=== PATIENT | male | born 1955 | race American Indian/Alaskan Native ===

== ENCOUNTER 2017-01-01 21:41 | Inpatient (IN) | payer MEDICAID ==
[2017-01-01] MEDS ORDERED: Aspirin 325 mg EC Tablets PO STA (23:45)
[2017-01-01] MEDS ORDERED: Nitroglycerin 2% Ointment Foilpak UD TOP STA (23:45)
--- NOTE | 2017-01-02 00:37 | C.PDOC ---
History Of Present Illness <Roe Falcon - Last Filed: 01/02/17 00:58> <Michaela Dan - Last Filed: 01/02/17 02:34> 61 year old male with a Hx of HTN and CHF that presents to the ER with a complaint of chest discomfort and SOB. 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 (Roe Falcon) History Per: Patient History/Exam Limitations: no limitations Onset/Duration Of Symptoms: Hrs Current Symptoms Are (Timing): Still Present Associated Symptoms: Dyspnea. denies: Nausea, Diaphoresis, Syncope Modifying Factors: None Exacerbating Factors: None Alleviating Factors: None Recent travel outside of the [place]: No <Roe Falcon - Last Filed: 01/02/17 00:58> <Michaela Dan - Last Filed: 01/02/17 02:34> Time Seen by Provider: 01/01/17 23:39 Chief Complaint (Nursing): Chest Pain Past Medical History Reviewed: Historical Data, Nursing Documentation, Vital Signs - Medical History PMH: CHF, HTN Surgical History: No Surg Hx Family History: States: Unknown Family Hx - Social History Hx Alcohol Use: Yes Hx Substance Use: No - Immunization History Hx Tetanus Toxoid Vaccination: No Hx Influenza Vaccination: No Hx Pneumococcal Vaccination: No <Roe Falcon - Last Filed: 01/02/17 00:58> Vital Signs: Last Vital Signs Temp 97.3 F L 01/01/17 21:52 Pulse 84 01/01/17 22:30 Resp 16 01/01/17 21:52 BP 112/75 01/02/17 00:56 Pulse Ox 98 01/02/17 01:04 Review Of Systems Constitutional: Negative for: Fever, Chills Cardiovascular: Positive for: Chest Pain (Discomfort) Respiratory: Positive for: Shortness of Breath Gastrointestinal: Negative for: Nausea, Vomiting <Roe Falcon - Last Filed: 01/02/17 00:58> Physical Exam - Physical Exam Appears: Non-toxic, No Acute Distress Skin: Normal Color, Warm, Dry Head: Atraumatic, Normacephalic Oral Mucosa: Moist Chest: Symmetrical Cardiovascular: Rhythm Regular (Positive S1 S2 S3), No JVD Respiratory: Normal Breath Sounds, No Rales, No Rhonchi, No Wheezing Gastrointestinal/Abdominal: Soft, No Tenderness Neurological/Psych: Oriented x3, Normal Speech, Normal Cognition <Roe Falcon - Last Filed: 01/02/17 00:58> ED Course And Treatment - Laboratory Results Result Diagrams: 01/02/17 00:15 O2 Sat by Pulse Oximetry: 98 (Room air) Pulse Ox Interpretation: Normal Progress Note: EKG, blood work, and CXR ordered. Aspirin administered. Nitro- bid applied. <Roe Falcon - Last Filed: 01/02/17 00:58> - Laboratory Results Result Diagrams: 01/02/17 00:15 01/02/17 01:09 ECG: Interpreted By Me, Viewed By Me ECG Rhythm: Sinus Rhythm (78), Nonspecific Changes (lad, lvvh with repol. lar ischemic changes) Pulse Ox Interpretation: Normal - Radiology CXR: Interpreted by Me, Viewed By Me CXR Interpretation: Yes: Other (top nl heart). No: Infiltrates, Fracture Progress Note: 2:03 AM ekg nsr 70 bpm, lad, lvh with repol st down lat leads. 2 :[address] CALDERON - CARDIOLOGY , ischemic changes,, and run it by domestic technician. 2:[address] marshall. Pt does not meet criteria for code heart <Michaela Dan - Last Filed: 01/02/17 02:34> Critical Care Time - Critical Care Note Total Time (in mins): 30 Documented critical care: time excludes all time spent performing seperately billable procedures. <Michaela Dan - Last Filed: 01/02/17 02:34> Disposition <Roe Falcon - Last Filed: 01/02/17 00:58> Discussed With DrJn: Booker Ibrahim Comment: accepted the pt on his service and took over the care at 2;33 AM Doctor Will See Patient In The: ED Counseled Patient/Family Regarding: Studies Performed, Diagnosis - Disposition Disposition Time: 01:00 <Michaela Dan - Last Filed: 01/02/17 02:34> - Disposition Disposition: HOSPITALIZED Condition: FAIR Forms: [facility] (Irish) - Clinical Impression Clinical Impression: Chest pain, NSTEMI (non-ST elevated myocardial infarction) - Scribe Statement The provider has reviewed the documentation as recorded by the Scribe <Roe Falcon - Last Filed: 01/02/17 00:58> <Michaela Dan - Last Filed: 01/02/17 02:34> - Scribe Statement Kevon Marroquin All medical record entries made by the Scribe were at my direction and personally dictated by me. I have reviewed the chart and agree that the record accurately reflects my personal performance of the history, physical exam, medical decision making, and the department course for this patient. I have also personally directed, reviewed, and agree with the discharge instructions and disposition. (Roe Falcon) Physician Patient Turnover Patient Signed Over To: Michaela Dan Handoff Comments: f/u labs/cxr plant to admit to Hospitalists for chest pain . <Roe Falcon - Last Filed: 01/02/17 00:58> Decision To Admit <Roe Falcon - Last Filed: 01/02/17 00:58> - Pt Status Changed To: Hospital Disposition Of: Inpatient - Admit Certification Admit to Inpatient:: After my assessment, the patient will require hospitalization for at least two midnights. This is because of the severity of symptoms shown, intensity of services needed, and/or the medical risk in this patient being treated as an outpatient. - InPatient: Physician Admission Certification: I certify that this patient requires 2 or more midnights of care for the following reason:: After my assessment, the patient will require hospitalization for at least two midnights. This is because of the severity of symptoms shown, intensity of services needed, and/or the medical risk in this patient being treated as an outpatient. - . Bed Request Type: Telemetry Admitting Physician: Booker Ibrahim <Michaela Dan - Last Filed: 01/02/17 02:34> - . Patient Diagnosis: Chest pain, NSTEMI (non-ST elevated myocardial infarction)
[2017-01-02 00:39] LABS: BASO % 0.7 % (0.0-2.0); EOS % 1.1 % (0.0-4.0); HEMATOCRIT 48.2 % (35.0-51.0); LYMPH % 32.1 % (20.0-40.0); MEAN CELL VOLUME 89.3 fL (80.0-94.0); MEAN CORPUSCULAR HEMOGLOBIN 29.2 pg (27.0-31.0); MEAN CORPUSCULAR HGB CONC 32.7 g/dL (33.0-37.0); MEAN PLATELET VOLUME 9.7 fL (7.2-11.7); MONO # 0.6 K/uL (0.0-0.8); MONO % 20.4 % (0.0-10.0); NRBC % 0.4 % (0.0-2.0); PLATELET COUNT 90 K/uL (130-400); RED CELL DISTRIBUTION WIDTH 16.6 % (11.5-14.5); WHITE BLOOD COUNT 3.1 K/uL (4.8-10.8)
[2017-01-02 00:49] LABS: INR 0.9
[2017-01-02] MEDS ORDERED: Aspirin 325 mg EC Tablets PO ONE (00:53)
[2017-01-02] MEDS ORDERED: Nitroglycerin 2% Ointment Foilpak UD TOP ONE (00:53)
[2017-01-02 01:28] LABS: ALB/GLOB RATIO 1.1 (1.0-2.1); ALKALINE PHOSPHATASE 101 U/L (38-126); ALT/SGPT 276 U/L (21-72); AST/SGOT 292 U/L (17-59); BILIRUBIN,TOTAL 0.9 mg/dL (0.2-1.3); BLOOD UREA NITROGEN 44 mg/dL (9-20); CALCIUM 8.6 mg/dl (8.6-10.4); CARBON DIOXIDE 28 mmol/L (22-30); CHLORIDE 98 mmol/L (98-107); GFR AFRICAN-AMERICAN > 60; GLUCOSE,RANDOM 88 mg/dL (75-110); POTASSIUM 4.3 mmol/L (3.6-5.2); SODIUM 134 mmol/L (132-148); TOTAL PROTEIN 6.7 g/dL (6.3-8.3)
[2017-01-02 02:35] LABS: EOSINOPHIL 1 % (0-4); NEUTROPHIL 53 % (50-75); REACTIVE LYMPHOCYTES 12 % (0-0); TOTAL CELLS COUNTED 100
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
[2017-01-02] MEDS ORDERED: Folic Acid 1 MG, Thiamine 100 MG, Multivitamin (MVI) 10 ML in Dextrose 5% In Water 1,00... IV SCH (05:00)
[2017-01-02 06:24] LABS: BASO % 1.1 % (0.0-2.0); EOS % 1.7 % (0.0-4.0); HEMATOCRIT 45.1 % (35.0-51.0); LYMPH # 0.8 K/uL (1.0-4.3); LYMPH % 31.8 % (20.0-40.0); MEAN CELL VOLUME 88.5 fL (80.0-94.0); MEAN CORPUSCULAR HEMOGLOBIN 28.8 pg (27.0-31.0); MEAN CORPUSCULAR HGB CONC 32.6 g/dL (33.0-37.0); MEAN PLATELET VOLUME 9.8 fL (7.2-11.7); MONO # 0.5 K/uL (0.0-0.8); MONO % 19.9 % (0.0-10.0); NRBC % 0.3 % (0.0-2.0); RED CELL DISTRIBUTION WIDTH 16.6 % (11.5-14.5); WHITE BLOOD COUNT 2.5 K/uL (4.8-10.8)
[2017-01-02 06:37] LABS: ALKALINE PHOSPHATASE 104 U/L (38-126); ALT/SGPT 273 U/L (21-72); AST/SGOT 285 U/L (17-59); BILIRUBIN,TOTAL 0.5 mg/dL (0.2-1.3); BLOOD UREA NITROGEN 42 mg/dL (9-20); CALCIUM 8.3 mg/dl (8.6-10.4); CARBON DIOXIDE 29 mmol/L (22-30); CHLORIDE 100 mmol/L (98-107); GFR AFRICAN-AMERICAN > 60; GLUCOSE,RANDOM 80 mg/dL (75-110); MAGNESIUM 1.8 mg/dL (1.6-2.3); PHOSPHOROUS 3.7 mg/dL (2.5-4.5); SODIUM 134 mmol/L (132-148); TOTAL PROTEIN 7.2 g/dL (6.3-8.3)
[2017-01-02 06:39] LABS: ALB/GLOB RATIO 0.8 (1.0-2.1)
--- NOTE | 2017-01-02 08:36 | RAD ---
PROCEDURE: CHEST RADIOGRAPH, 1 VIEW HISTORY: Shortness of breath COMPARISON: None available. FINDINGS: LUNGS: No focal infiltrate or effusion. Mild venous congestion. Upper lobe granulomatous changes. PLEURA: No pneumothorax or pleural fluid seen. CARDIOVASCULAR: Tortuous ectatic aorta. Mild calcification at the aortic knob. OSSEOUS STRUCTURES: Degenerative changes in the spine and shoulders. VISUALIZED UPPER ABDOMEN: Normal. OTHER FINDINGS: None. IMPRESSION: No focal infiltrate or effusion. Mild venous congestion. Upper lobe granulomatous changes.
[2017-01-02] MEDS: Enoxaparin 60 mg Syringe SC SCH ×2 (11:50→21:38)
[2017-01-02 15:38] LABS: CHOLESTEROL 120 mg/dL (0-199)
--- NOTE | 2017-01-02 17:24 | CARD ---
APPROVED REPORT EXAM: Two-dimensional and M-mode echocardiogram with Doppler and color Doppler. Other Information Quality : GoodRhythm : INDICATION Chest Pain RISK FACTORS Hypertension Hyperlipidemia 2D DIMENSIONS IVSd1.3 (0.7-1.1cm)LVDd4.7 (3.9-5.9cm) PWd1.3 (0.7-1.1cm)LVDs3.8 (2.5-4.0cm) FS (%) 17.9 %LVEF (%)50.0 (>50%) M-Mode DIMENSIONS Left Atrium (MM)4.20 (2.5-4.0cm)Aortic Root3.81 (2.2-3.7cm) Aortic Cusp Exc.2.33 (1.5-2.0cm) Mitral Valve MV E Elaclbns29.3cm/sMV A Eccpgfsk80.6cm/sE/A ratio0.7 TDI E/Lateral E'0.0E/Medial E'0.0 Tricuspid Valve TR Peak Khktzurs892lc/sTR Peak Gr.64sgOyDBKL03kdPu LEFT VENTRICLE There is mild to moderate concentric left ventricular hypertrophy. The systolic function is mildly to moderately impaired. Ejection fraction - 40 -45%. There is normal LV segmental wall motion. Transmitral Doppler flow pattern is Grade I-abnormal relaxation pattern. RIGHT VENTRICLE The right ventricle is normal size. The right ventricular systolic function is normal. ATRIA The left atrium is mildly to moderately dilated. The right atrium is mildly dilated. AORTIC VALVE The aortic valve is normal in structure. There is trace aortic regurgitation. MITRAL VALVE The mitral valve is normal in structure. There is no mitral valve regurgitation noted. TRICUSPID VALVE The tricuspid valve is normal in structure. There is mild tricuspid regurgitation. Right ventricular systolic pressure is estimated at 30 mmHg. PULMONIC VALVE The pulmonary valve is normal in structure. GREAT VESSELS The aortic root is mildly enlarged. The IVC is normal in size and collapses >50% with inspiration. PERICARDIAL EFFUSION There is no pericardial effusion. <Conclusion> There is mild to moderate concentric left ventricular hypertrophy. The systolic function is mildly to moderately impaired. Ejection fraction - 40 - 45%. Transmitral Doppler flow pattern is Grade I-abnormal relaxation pattern. The right ventricular systolic function is normal. The left atrium is mildly to moderately dilated. There is trace aortic regurgitation. There is mild tricuspid regurgitation. Right ventricular systolic pressure is estimated at 30 mmHg. The aortic root is mildly enlarged. There is no pericardial effusion.
[2017-01-02] MEDS ORDERED: Metoprolol Succinate 12.5 mg XL PO ONE (17:50)
--- NOTE | 2017-01-02 19:24 | CARD ---
APPROVED REPORT EKG Measurement Heart [id number] <Conclusion> Normal sinus rhythm Left atrial enlargement Left axis deviation Left ventricular hypertrophy with repolarization abnormality Abnormal ECG
--- NOTE | 2017-01-02 19:58 | CP.PCM.PN ---
<WilcoxKalyani bradshawmariam Gamez - Last Filed: 01/02/17 20:08> Subjective - Date & Time of Evaluation Date of Evaluation: 01/02/17 Time of Evaluation: 10:00 - Subjective Subjective: Medicine note (PGY-1)----> Dr. Tello's service Patient was seen and examined at bedside. Patient reports that he is doing well and has no complaints. Patient denies chest pain, sob, palpitations, dizziness, fever, chills, nausea, vomiting, left arm numbness or tingling. Objective - Vital Signs/Intake and Output Vital Signs (last 24 hours): Temp Pulse Resp BP Pulse Ox 97.8 F 74 12 124/90 100 01/02/17 14:00 01/02/17 18:00 01/02/17 14:00 01/02/17 14:00 01/02/17 14:00 Intake and Output: 01/02/17 01/03/17 18:59 06:59 Intake Total 150 Output Total 700 Balance -550 - Medications Medications: Current Medications Aspirin (Aspirin Chewable) 81 mg PO DAILY [facility] Last Admin: 01/02/17 13:12 Dose: 81 mg Clopidogrel Bisulfate (Plavix) 75 mg PO DAILY [facility] Last Admin: 01/02/17 13:12 Dose: 75 mg Enoxaparin Sodium (Lovenox) 50 mg SC Q12 [facility] Last Admin: 01/02/17 11:50 Dose: 50 mg Famotidine (Pepcid) 20 mg PO DAILY [facility] Last Admin: 01/02/17 13:12 Dose: 20 mg Folic Acid (Folic Acid) 1 mg PO DAILY [facility] Last Admin: 01/02/17 13:12 Dose: 1 mg Folic Acid 1 mg/ Thiamine HCl 100 mg/ Multivitamins/Vitamin C 10 ml/ Dextrose 1 ,011.2 mls @ 50 mls/hr IV [id number] [facility] Stop: 01/03/17 01:13 Last Admin: 01/02/17 06:16 Dose: 50 mls/hr Lorazepam (Ativan) 1 mg IVP Q4H PRN PRN Reason: Symptoms of alcohol withdrawl Metoprolol Succinate (Toprol Xl) 12.5 mg PO DAILY [facility] Rosuvastatin Calcium (Crestor) 20 mg PO HS [facility] Thiamine HCl (Vitamin B1 Tab) 100 mg PO DAILY [facility] Last Admin: 01/02/17 13:12 Dose: 100 mg - Labs Labs: 01/02/17 06:18 01/02/17 06:18 PT 10.3 SECONDS (9.7-12.2) 01/02/17 00:15 INR 0.9 01/02/17 00:15 APTT 25 SECONDS (21-34) 01/02/17 00:15 - Constitutional Appears: Well, No Acute Distress - Head Exam Head Exam: ATRAUMATIC, NORMAL INSPECTION - Eye Exam Eye Exam: EOMI - Respiratory Exam Respiratory Exam: Clear to Ausculation Bilateral, NORMAL BREATHING PATTERN - Cardiovascular Exam Cardiovascular Exam: REGULAR RHYTHM, +S1, +S2 - GI/Abdominal Exam GI & Abdominal Exam: Soft, Normal Bowel Sounds - Extremities Exam Extremities Exam: Full ROM. absent: Calf Tenderness, Pedal Edema Additional comments: varicose veins Unkept Dry - Neurological Exam Neurological Exam: Alert, Awake, Oriented x3 - Psychiatric Exam Psychiatric exam: Normal Affect - Skin Skin Exam: Normal Color Assessment and Plan (1) NSTEMI (non-ST elevated myocardial infarction) Assessment & Plan: Commercial Litigation Paralegal, Dr. Hand consulted, help appreciated * Management as per recommendation Labs: Lipid panel: TGL:120, LDL<30, HDL:87 HgbA1C:5.6 Troponin I: 0.1630, 0.1610, 0.1270 Medication: * ASA 81 mg po daily * Lovenox 50 mg sc q12h * Crestor 20mg po daily * Metoprolol succinate 12.5mg po daily * Plavix 75 mg po daily Status: Acute (2) Alcohol use disorder Assessment & Plan: Ativan 1 mg q4h PRN Thiamine 100 mg po daily Folic acid 1 mg po daily Banana bag at 50 cc/hr Seizure precautions, aspiration precautions Status: Acute (3) History of hypertension Assessment & Plan: Stable Continue to Monitor Status: Acute (4) History of hyperlipidemia Assessment & Plan: Crestor 20mg PO HS Status: Acute (5) Prophylactic measure Assessment & Plan: GI: pepcid 20mg po daily DVT: SCDs, lovenox 50mg sc q12h\ Heart healthy diet Status: Acute <Gene Tello - Last Filed: 01/11/17 15:04> Objective - Vital Signs/Intake and Output Vital Signs (last 24 hours): Temp Pulse Resp BP Pulse Ox 97.3 F L 54 L 20 147/77 99 01/09/17 07:10 01/09/17 11:14 01/09/17 07:10 01/09/17 11:14 01/09/17 07:10 - Labs Labs: 01/09/17 09:58 01/09/17 10:00 PT 10.3 SECONDS (9.7-12.2) 01/02/17 00:15 INR 0.9 01/02/17 00:15 APTT 25 SECONDS (21-34) 01/02/17 00:15 Attending/Attestation - Attestation I have personally seen and examined this patient.: Yes I have fully participated in the care of the patient.: Yes I have reviewed all pertinent clinical information, including history, physical exam and plan: Yes Notes (Text): NSTEMI (non-ST elevated myocardial infarction) Commercial Litigation Paralegal, Dr. Hand consulted, help appreciated * Management as per recommendation Labs: Lipid panel: TGL:120, LDL<30, HDL:87 HgbA1C:5.6 Troponin I: 0.1630, 0.1610, 0.1270 Medication: * ASA 81 mg po daily * Lovenox 50 mg sc q12h * Crestor 20mg po daily * Metoprolol succinate 12.5mg po daily * Plavix 75 mg po daily Alcohol use disorder Assessment & Plan: Ativan 1 mg q4h PRN Thiamine 100 mg po daily Folic acid 1 mg po daily Banana bag at 50 cc/hr
--- NOTE | 2017-01-03 02:08 | CON ---
CARDIOLOGY CONSULT REASON FOR CONSULTATION: Chest pain. HISTORY OF PRESENT ILLNESS: The patient is a 61-year-old -English male who has a history of alcohol and drug abuse and is a smoker, presented because of chest discomfort as well as shortness of breath. The patient is being followed by c d still operator in the clinic who does not recall her name, but denies undergoing cardiac catheterization or coronary intervention in the past. SOCIAL HISTORY: The patient is a smoker, drinker and occasional drug abuser, who lives with his daughter. REVIEW OF SYSTEM: No nausea or vomiting. No fever or chills. MEDICATIONS: Aspirin 81 mg once a day, Ativan 1 mg intravenously q.4 hours p.r.n., Crestor 20 mg once a day, Lovenox 60 mg subcutaneously twice a day, Plavix 75 mg once a day, and thiamine 100 mg once a day. PHYSICAL EXAMINATION: GENERAL: The patient is a middle-aged male, who does not appear to be in acute distress. VITAL SIGNS: Blood pressure 114/83, heart rate 60, temperature 97.7, respirations 16. HEENT: Normocephalic. CHEST: Bilateral rhonchi. HEART: S1 and S2 regular. ABDOMEN: Soft. EXTREMITIES: No edema. LABORATORY DATA: Today's SMA-7 is within normal limits except for a BUN of 42 and anion gap of 9. Troponin was 0.163, 0.161 and 0.127. PT, PTT and INR are within normal limits. Hemoglobin and hematocrit are within normal limits. White count 2.5, platelet count 118,000. EKG revealed sinus rhythm, LVH with repolarization changes. Consider old septal infarct, left atrial enlargement, left axis deviation. ASSESSMENT: 1. Chest pain with borderline troponin elevation. Consider non-ST elevation myocardial infarction. 2. Elevated liver enzymes, rule out alcoholic liver disease. RECOMMENDATIONS: Continue current aspirin, Crestor, folic acid, subcutaneous Lovenox, Plavix and thiamine. Cardiac catheterization was offered; however, the patient declined undergoing cardiac catheterization. I will review the echocardiograph study that was performed today. Atif Hand MD
[2017-01-03 06:35] LABS: BASO # 0.1 K/uL (0.0-0.2); BASO % 2.4 % (0.0-2.0); EOS # 0.1 K/uL (0.0-0.7); EOS % 3.1 % (0.0-4.0); LYMPH # 0.9 K/uL (1.0-4.3); LYMPH % 43.5 % (20.0-40.0); MEAN CELL VOLUME 88.4 fL (80.0-94.0); MEAN CORPUSCULAR HEMOGLOBIN 28.8 pg (27.0-31.0); MEAN CORPUSCULAR HGB CONC 32.6 g/dL (33.0-37.0); MEAN PLATELET VOLUME 9.7 fL (7.2-11.7); MONO # 0.5 K/uL (0.0-0.8); MONO % 25.1 % (0.0-10.0); NRBC % 0.1 % (0.0-2.0); PLATELET COUNT 138 K/uL (130-400); RED CELL DISTRIBUTION WIDTH 16.8 % (11.5-14.5); WHITE BLOOD COUNT 2.1 K/uL (4.8-10.8)
[2017-01-03 07:37] LABS: ALKALINE PHOSPHATASE 92 U/L (38-126); ALT/SGPT 279 U/L (21-72); AST/SGOT 306 U/L (17-59); BILIRUBIN,TOTAL 0.8 mg/dL (0.2-1.3); BLOOD UREA NITROGEN 34 mg/dL (9-20); CALCIUM 8.4 mg/dl (8.6-10.4); CARBON DIOXIDE 27 mmol/L (22-30); CHLORIDE 98 mmol/L (98-107); GFR AFRICAN-AMERICAN > 60; GLUCOSE,RANDOM 78 mg/dL (75-110); MAGNESIUM 1.7 mg/dL (1.6-2.3); POTASSIUM 4.4 mmol/L (3.6-5.2); SODIUM 130 mmol/L (132-148); TOTAL PROTEIN 7.5 g/dL (6.3-8.3)
[2017-01-03 07:47] LABS: ALB/GLOB RATIO 0.8 (1.0-2.1)
[2017-01-03 08:53] LABS: EOSINOPHIL 3 % (0-4); NEUTROPHIL 33 % (50-75); TOTAL CELLS COUNTED 100
[2017-01-03 08:54] LABS: LARGE PLATELETS PRESENT
--- NOTE | 2017-01-03 09:43 | CP.PCM.PN ---
Subjective - Date & Time of Evaluation Date of Evaluation: 01/03/17 Time of Evaluation: 09:40 - Subjective Subjective: Medical Attending Note Patient seen and examined at bedside. Denies headache, denies dizziness, reports chest pain, denies cough, denies palpations, report abdominal pain, denies nausea, denies vomitting, reports frequency, denies he had bowel movement. Patient reports he didn't sleep well last night. patient denies withdrawal seizures, denies inbutation, and reports he lives with his sister. Objective - Vital Signs/Intake and Output Vital Signs (last 24 hours): Temp Pulse Resp BP Pulse Ox 98 F 84 23 137/96 H 99 01/03/17 06:00 01/03/17 06:00 01/03/17 06:00 01/03/17 06:00 01/03/17 06:00 Intake and Output: 01/03/17 01/03/17 06:59 18:59 Intake Total 710 Output Total 1000 Balance -290 - Medications Medications: Current Medications Aspirin (Aspirin Chewable) 81 mg PO DAILY [facility] Last Admin: 01/02/17 13:12 Dose: 81 mg Clopidogrel Bisulfate (Plavix) 75 mg PO DAILY [facility] Last Admin: 01/02/17 13:12 Dose: 75 mg Enoxaparin Sodium (Lovenox) 50 mg SC Q12 [facility] Last Admin: 01/02/17 21:38 Dose: 50 mg Famotidine (Pepcid) 20 mg PO DAILY [facility] Last Admin: 01/02/17 13:12 Dose: 20 mg Folic Acid (Folic Acid) 1 mg PO DAILY [facility] Last Admin: 01/02/17 13:12 Dose: 1 mg Lorazepam (Ativan) 1 mg IVP Q4H PRN PRN Reason: Symptoms of alcohol withdrawl Last Admin: 01/03/17 00:34 Dose: 1 mg Metoprolol Succinate (Toprol Xl) 12.5 mg PO DAILY [facility] Rosuvastatin Calcium (Crestor) 20 mg PO HS [facility] Last Admin: 01/02/17 21:38 Dose: 20 mg Thiamine HCl (Vitamin B1 Tab) 100 mg PO DAILY [facility] Last Admin: 01/02/17 13:12 Dose: 100 mg - Labs Labs: 01/03/17 06:25 01/03/17 07:04 PT 10.3 SECONDS (9.7-12.2) 01/02/17 00:15 INR 0.9 01/02/17 00:15 APTT 25 SECONDS (21-34) 01/02/17 00:15 - Constitutional Appears: Non-toxic, No Acute Distress - Head Exam Head Exam: NORMAL INSPECTION - Eye Exam Eye Exam: EOMI - ENT Exam ENT Exam: Mucous Membranes Dry - Respiratory Exam Respiratory Exam: Clear to Ausculation Bilateral, NORMAL BREATHING PATTERN. absent: Rales, Rhonchi, Wheezes - Cardiovascular Exam Cardiovascular Exam: REGULAR RHYTHM, +S1, +S2 - GI/Abdominal Exam GI & Abdominal Exam: Distended, Soft, Normal Bowel Sounds. absent: Guarding, Rigid, Tenderness, Rebound - Extremities Exam Extremities Exam: absent: Pedal Edema, Tenderness Additional comments: mild tremors on exam - Back Exam Back Exam: absent: CVA tenderness (L), CVA tenderness (R) - Neurological Exam Neurological Exam: Alert, Awake, Oriented x3 - Psychiatric Exam Psychiatric exam: Normal Affect, Normal Mood - Skin Skin Exam: Dry, Normal Color, Warm Assessment and Plan (1) NSTEMI (non-ST elevated myocardial infarction) Assessment & Plan: Cardiology (Dr. Hand) on case-->help appreciated Aspirin 81mg PO Daily Plavix 75mg PO daily Lovenox 50mg [id number] Toprol XL 12.5mg PO Daily Crestor 20mg POHS Cardiology had offered cardiac cath-->patient declined per cardio note. Echocardiogram (01.02.17): mild to moderate concentricl LVH, systolic function: 40-45%, laft atrium mild to moderate dilated. trace aortic regurgitation, mild tricuspid regurgitation Labs: Lipid panel: TGL:120, LDL<30, HDL:87 HgbA1C:5.6 Troponin I: 0.1630, 0.1610, 0.1270 start low dose of Santiago-inhibitor proNBP: 789 Status: Acute (2) Alcohol use disorder Assessment & Plan: Psych (Dr Sun) patient has been drinking pint and half since the age 11. Denies alcohol withdrawal seizures/intubation/DTs Patient last drink 48 hours ago MVI 1 tab PO daily Thiamine 100mg PO daily Folic 1mg PO daily Status: Acute (3) History of hyperlipidemia Assessment & Plan: held statin elevated LFTs Status: Chronic (4) History of hypertension Assessment & Plan: Toprol XL 12.5mg PO daily Start Lisinopril 2.5mg PO daily Status: Chronic (5) Transaminitis Assessment & Plan: elevated Abdominal US r/o pathology hold Statin order for hep panel Status: Acute (6) Prophylactic measure Assessment & Plan: Lovenox 50mg [id number] Status: Acute
[2017-01-03] MEDS: Enoxaparin 60 mg Syringe SC SCH (10:06)
[2017-01-03] MEDS: Metoprolol Succinate 12.5 mg XL PO SCH (10:08)
[2017-01-03] MEDS: Multiple Vitamins Tab PO SCH (10:08)
--- NOTE | 2017-01-03 13:28 | CARD ---
APPROVED REPORT EKG Measurement Heart [id number] <Conclusion> Normal sinus rhythm Possible Left atrial enlargement Left axis deviation Left ventricular hypertrophy with repolarization abnormality Cannot rule out Septal infarct, age undetermined Abnormal ECG
--- NOTE | 2017-01-03 13:28 | CARD ---
APPROVED REPORT EKG Measurement Heart [id number] [place] 150P38 [id number] <Conclusion> Sinus bradycardia Left axis deviation Left ventricular hypertrophy with repolarization abnormality Abnormal ECG
--- NOTE | 2017-01-03 16:10 | PCM.PSYCH ---
Initial Psychiatric Evaluation - Initial Psychiatric Evaluation Type of Admission: Voluntary Legal Status: Capacity Chief Complaint (in patient's own words): "I can't sleep" History of Present Illness and Precipitating Events: This patient was seen, chart reviewed, and case discussed with staff. This is a 61 year old male, who lives at home with daughter. He was brought to the hospital for chest pain. Patient reports alcohol use, 2-4 pints regularly with the last drink 1 day ago before admission. He reports auditory hallucinations that do not command him to harm self or others. He denies any visual hallucinations or feelings of paranoia. Patient denies past inpatient psychiatric hospitalizations or outpatient psychiatric care. He denies heroin, cocaine, marijuana use. He denies any suicidal ideations or homicidal ideations. Past medical history: HTN, CHF, HLD Past family psychiatric history: unknown by patient Current Medications: Active Medications Generic Name Dose Route Start Last Admin Trade Name Freq PRN Reason Stop Dose Admin Aspirin 81 mg 01/02/17 10:00 01/03/17 10:11 Aspirin Chewable PO 81 mg DAILY STEPHANIE Administration Clopidogrel Bisulfate 75 mg 01/02/17 12:45 01/03/17 10:08 Plavix PO 75 mg DAILY STEPH[facility]IE Administration Enoxaparin Sodium 50 mg 01/02/17 10:00 01/03/17 10:06 Lovenox SC 50 mg Q12 STEPHANIE Administration Famotidine 20 mg 01/02/17 10:00 01/03/17 10:08 Pepcid PO 20 mg DAILY STEPHANIE Administration Folic Acid 1 mg 01/02/17 10:00 01/03/17 10:08 Folic Acid PO 1 mg DAILY STEPHANIE Administration Lisinopril 2.5 mg 01/03/17 10:00 01/03/17 10:52 Zestril PO 2.5 mg DAILY STEPH[facility]IE Administration Lorazepam 1 mg 01/02/17 04:57 01/03/17 10:56 Ativan IVP 1 mg Q4H PRN Administration Symptoms of alcohol withdrawl Metoprolol Succinate 12.5 mg 01/03/17 10:00 01/03/17 10:08 Toprol Xl PO 12.5 mg DAILY [facility]IE Administration Multivitamins 1 tab 01/03/17 10:00 01/03/17 10:08 Hexavitamin PO 1 tab DAILY STEPHANIE Administration Rosuvastatin Calcium 20 mg 01/02/17 22:00 01/02/17 21:38 Crestor PO 20 mg HS STEPHANIE Administration Thiamine HCl 100 mg 01/02/17 10:00 01/03/17 10:08 Vitamin B1 Tab PO 100 mg DAILY [facility]IE Administration Past Psychiatric History - Past Psychiatric History Previous Treatment History: None Pertinent Medical Hx (Current Medical&Sleep Prob, Allergies): Allergies Allergy/AdvReac Type Severity Reaction Status Date / Time No Known Allergies Allergy Verified 01/01/17 21:54 Unobtainable 01/01/17 Review of Systems - Review of Systems All systems: reviewed and no additional remarkable complaints except - Psychiatric Psychiatric: Anxiety, Auditory Hallucinations, Change in Appetite, Depression, Irritability Mental Status Examination - Personal Presentation Personal Presentation: Looks stated age - Affect Affect: Constricted - Motor Activity Motor Activity: Calm - Reliability in Providing Information Reliability in Providing Information: Poor, due to altered mood - Speech Speech: Organized - Mood Mood: Depressed, Anxious - Formal Thought Process Formal Thought Process: Hallucinations - Hallucinations/Delusions Hallucinations: Auditory - Obsessions/Compulsions Obsessions: No Compulsions: No - Cognitive Functions Orientation: Person, Place, Situation, Time Sensorium: Alert Attention/Concentration: Attentive Abstract Thinking: [place] Estimate of Intelligence: Below average Judgement: Imparied, as evidence by: Poor judgement, Intact, as evidence by: Insight regarding need for hospitalization - Risk Risk: Withdrawal, Diminished functioning - Limitations Limitations: Living alone DSM 5 DX - DSM 5 DSM 5 Diagnosis: Alcohol use disorder severe Alcohol withdrawal complicated - Recommended/Plan of Treatment Treatment Recommendations and Plan of Treatment: Alcohol use disorder severe CBT Psychoeducation Supportive therapy, individual therapy Use HI for abstinence Alcohol withdrawal complicated CBT Psychoeducation Supportive therapy, individual therapy Ativan taper Ativan PRN - Smoking Cessation Smoking Cessation Initiated: No
[2017-01-04 06:32] LABS: EOS # 0.1 K/uL (0.0-0.7); LYMPH % 37.4 % (20.0-40.0); MEAN CELL VOLUME 89.3 fL (80.0-94.0); MEAN CORPUSCULAR HEMOGLOBIN 29.2 pg (27.0-31.0); MEAN CORPUSCULAR HGB CONC 32.7 g/dL (33.0-37.0); MEAN PLATELET VOLUME 9.3 fL (7.2-11.7); MONO # 0.6 K/uL (0.0-0.8); MONO % 21.7 % (0.0-10.0); NRBC % 0.3 % (0.0-2.0); PLATELET COUNT 101 K/uL (130-400); RED CELL DISTRIBUTION WIDTH 16.8 % (11.5-14.5); WHITE BLOOD COUNT 2.6 K/uL (4.8-10.8)
[2017-01-04 06:45] LABS: ALB/GLOB RATIO 1.1 (1.0-2.1); ALKALINE PHOSPHATASE 104 U/L (38-126); ALT/SGPT 232 U/L (21-72); AST/SGOT 237 U/L (17-59); BILIRUBIN,TOTAL 0.7 mg/dL (0.2-1.3); BLOOD UREA NITROGEN 34 mg/dL (9-20); CALCIUM 8.4 mg/dl (8.6-10.4); CARBON DIOXIDE 25 mmol/L (22-30); CHLORIDE 100 mmol/L (98-107); GFR AFRICAN-AMERICAN > 60; GLUCOSE,RANDOM 96 mg/dL (75-110); MAGNESIUM 1.5 mg/dL (1.6-2.3); PHOSPHOROUS 2.3 mg/dL (2.5-4.5); POTASSIUM 4.3 mmol/L (3.6-5.2); SODIUM 130 mmol/L (132-148); TOTAL PROTEIN 6.1 g/dL (6.3-8.3)
--- NOTE | 2017-01-04 07:29 | CP.PCM.PN ---
Objective - Vital Signs/Intake and Output Vital Signs (last 24 hours): Temp Pulse Resp BP Pulse Ox 97.9 F 61 20 123/81 100 01/04/17 04:00 01/04/17 04:00 01/04/17 04:00 01/04/17 04:00 01/04/17 04:00 Intake and Output: 01/04/17 01/04/17 06:59 18:59 Intake Total 980 Output Total 300 Balance 680 - Medications Medications: Current Medications Aspirin (Aspirin Chewable) 81 mg PO DAILY [facility] Last Admin: 01/03/17 10:11 Dose: 81 mg Clopidogrel Bisulfate (Plavix) 75 mg PO DAILY [facility] Last Admin: 01/03/17 10:08 Dose: 75 mg Enoxaparin Sodium (Lovenox) 30 mg SC DAILY [facility] Famotidine (Pepcid) 20 mg PO DAILY [facility] Last Admin: 01/03/17 10:08 Dose: 20 mg Folic Acid (Folic Acid) 1 mg PO DAILY [facility] Last Admin: 01/03/17 10:08 Dose: 1 mg Lisinopril (Zestril) 5 mg PO DAILY [facility] Lorazepam (Ativan) 1 mg IVP Q4H PRN PRN Reason: Symptoms of alcohol withdrawl Last Admin: 01/03/17 10:56 Dose: 1 mg Lorazepam (Ativan) 1 mg PO Q4 [facility]IE PRN Reason: Taper Stop: 01/08/17 23:14 Last Admin: 01/04/17 04:00 Dose: 1 mg Metoprolol Succinate (Toprol Xl) 12.5 mg PO DAILY [facility] Last Admin: 01/03/17 10:08 Dose: 12.5 mg Multivitamins (Hexavitamin) 1 tab PO DAILY [facility] Last Admin: 01/03/17 10:08 Dose: 1 tab Rosuvastatin Calcium (Crestor) 20 mg PO HS [facility] Last Admin: 01/02/17 21:38 Dose: 20 mg Thiamine HCl (Vitamin B1 Tab) 100 mg PO DAILY [facility] Last Admin: 01/03/17 10:08 Dose: 100 mg - Labs Labs: 01/04/17 06:16 01/04/17 06:16 PT 10.3 SECONDS (9.7-12.2) 01/02/17 00:15 INR 0.9 01/02/17 00:15 APTT 25 SECONDS (21-34) 01/02/17 00:15
[2017-01-04] MEDS ORDERED: Magnesium Sulfate 1 gm in D5W 1 GM/100 ML BAG IVPB ONE (09:00)
[2017-01-04 09:16] LABS: EOSINOPHIL 2 % (0-4); NEUTROPHIL 39 % (50-75); TOTAL CELLS COUNTED 100
[2017-01-04 09:17] LABS: GIANT PLATELETS PRESENT; LARGE PLATELETS PRESENT
[2017-01-04] MEDS: Multiple Vitamins Tab PO SCH (09:41)
[2017-01-04] MEDS: Enoxaparin 30 mg Syringe SC SCH (09:42)
[2017-01-04] MEDS: Metoprolol Succinate 12.5 mg XL PO SCH (09:42)
[2017-01-04 15:12] LABS: TROPONIN I 0.167 ng/mL (0.00-0.120)
--- NOTE | 2017-01-04 15:47 | CP.PCM.PN ---
Subjective - Date & Time of Evaluation Date of Evaluation: 01/04/17 Time of Evaluation: 15:45 - Subjective Subjective: Medical Attending Note Patient seen and examined this afternoon. Attempted to see the patient this morning but he needed to use the urinalysis. Patient denies headache, reports chest pain earlier and chest pain; also reports tenderness to palpation, reports oxygen making him feel better, but he is not hypoxic, denies abdominal pain, denies diarrhea, denies constipation, and denies bleeding. Objective - Vital Signs/Intake and Output Vital Signs (last 24 hours): Temp Pulse Resp BP Pulse Ox 97.8 F 66 29 H 111/78 100 01/04/17 12:00 01/04/17 12:10 01/04/17 12:10 01/04/17 15:04 01/04/17 04:00 Intake and Output: 01/04/17 01/04/17 06:59 18:59 Intake Total 980 240 Output Total 300 Balance 680 240 - Medications Medications: Current Medications Aspirin (Aspirin Chewable) 81 mg PO DAILY [facility] Last Admin: 01/04/17 09:41 Dose: 81 mg Clopidogrel Bisulfate (Plavix) 75 mg PO DAILY [facility] Last Admin: 01/04/17 09:41 Dose: 75 mg Enoxaparin Sodium (Lovenox) 30 mg SC DAILY [facility] Last Admin: 01/04/17 09:42 Dose: 30 mg Famotidine (Pepcid) 20 mg PO DAILY [facility] Last Admin: 01/04/17 10:00 Dose: 20 mg Folic Acid (Folic Acid) 1 mg PO DAILY [facility] Last Admin: 01/04/17 09:41 Dose: 1 mg Lisinopril (Zestril) 5 mg PO DAILY [facility] Last Admin: 01/04/17 09:42 Dose: 5 mg Lorazepam (Ativan) 1 mg IVP Q4H PRN PRN Reason: Symptoms of alcohol withdrawl Last Admin: 01/03/17 10:56 Dose: 1 mg Lorazepam (Ativan) 1 mg PO Q4 [facility] PRN Reason: Taper Stop: 01/08/17 23:14 Last Admin: 01/04/17 12:29 Dose: 1 mg Metoprolol Succinate (Toprol Xl) 12.5 mg PO DAILY [facility] Last Admin: 01/04/17 09:42 Dose: 12.5 mg Multivitamins (Hexavitamin) 1 tab PO DAILY [facility] Last Admin: 01/04/17 09:41 Dose: 1 tab Rosuvastatin Calcium (Crestor) 20 mg PO HS [facility] Last Admin: 01/02/17 21:38 Dose: 20 mg Thiamine HCl (Vitamin B1 Tab) 100 mg PO DAILY [facility] Last Admin: 01/04/17 10:00 Dose: 100 mg - Labs Labs: 01/04/17 06:16 01/04/17 06:16 PT 10.3 SECONDS (9.7-12.2) 01/02/17 00:15 INR 0.9 01/02/17 00:15 APTT 25 SECONDS (21-34) 01/02/17 00:15 - Constitutional Appears: Non-toxic, No Acute Distress, Unkempt - Head Exam Head Exam: NORMAL INSPECTION - Eye Exam Eye Exam: EOMI, PERRL. absent: Nystagmus, Scleral icterus - ENT Exam ENT Exam: Mucous Membranes Moist - Respiratory Exam Respiratory Exam: Clear to Ausculation Bilateral, NORMAL BREATHING PATTERN. absent: Rales, Rhonchi, Wheezes - Cardiovascular Exam Cardiovascular Exam: REGULAR RHYTHM, +S1, +S2 - GI/Abdominal Exam GI & Abdominal Exam: Soft, Normal Bowel Sounds. absent: Distended, Firm, Guarding, Rigid, Tenderness, Rebound - Extremities Exam Extremities Exam: absent: Pedal Edema, Tenderness - Neurological Exam Neurological Exam: Alert, Awake - Psychiatric Exam Psychiatric exam: Normal Affect, Normal Mood - Skin Skin Exam: Dry, Intact, Normal Color, Warm Assessment and Plan (1) NSTEMI (non-ST elevated myocardial infarction) Status: Acute (2) Alcohol use disorder Status: Acute (3) History of hyperlipidemia Status: Chronic (4) History of hypertension Status: Chronic (5) Transaminitis Status: Acute (6) Prophylactic measure Status: Acute - Assessment and Plan (Free Text) Assessment: Assessment and Plan (1) NSTEMI (non-ST elevated myocardial infarction) Assessment & Plan: * Cardiology (Dr. Hand) on case-->help appreciated * Aspirin 81mg PO Daily * Plavix 75mg PO daily * Switched to dvt ppx dose of Lovenox 30mg subqQH * c/w Toprol XL 12.5mg PO Daily * held Crestor 20mg POHS 01/03 secondary to elevated LFTs * Echocardiogram (11.21.17): mild to moderate concentricl LVH, systolic function : 40-45%, laft atrium mild to moderate dilated. trace aortic regurgitation, mild tricuspid regurgitation * Labs: * Lipid panel: TGL:120, LDL<30, HDL:87 * HgbA1C:5.6 * Troponin I: 0.1630, 0.1610, 0.1270, 0.1670, will trend ROMIs * start low dose of Santiago-inhibitor * proNBP: 789 Status: Acute (2) Alcohol use disorder Assessment & Plan: * Psych (Dr Sun) * patient has been drinking pint and half since the age 11. * Denies alcohol withdrawal seizures/intubation/DTs * Patient last drink 72 hours ago * MVI 1 tab PO daily * Thiamine 100mg PO daily * Folic 1mg PO daily Status: Acute (3) History of hyperlipidemia Assessment & Plan: * elevated LFTs Status: Chronic (4) History of hypertension Assessment & Plan: * Toprol XL 12.5mg PO daily * Start Lisinopril 2.5mg PO daily Status: Chronic (5) Transaminitis Assessment & Plan: * elevated * Patient refused Abdominal US r/o pathology 01/03 * hold Statin * patient is aware he has hepatitis C * Reports he had some type of treatment in [place] years ago, does not see at doctor currently Status: Acute (6) Thrombocytopenia Assessment & Plan: * decreased today * Switched from therapuetic to dvt ppx Lovenox today * No bleeding noted * Patient is also on Aspirin/Plavix for Nonstemi * Heme-onc (Dr. Shelbi Chung/Dr Stevens covering during the holiday) for thrombocytopenia * HIT and INGRID ordered (7) Prophylactic measure Assessment & Plan: * Lovenox 30mg subq daily Status: Acute Disposition: * Will follow-up with cardiology in regards mild elevated troponin * F/u heme-onc for thrombocytopenia
[2017-01-04] MEDS ORDERED: Digoxin 500 mcg/2ml (0.5 mg/2ml) Inj IVP ONE ×2 (17:23→17:24)
[2017-01-04] MEDS ORDERED: Sodium Chloride 0.9% 500 ML IV ONE ×2 (17:23→17:25)
[2017-01-04] MEDS ORDERED: Metoprolol 1 mg/ml Inj IVP ONE ×2 (17:23→17:55)
[2017-01-04] MEDS ORDERED: Metoprolol Succinate 12.5 mg XL PO SCH (17:51)
[2017-01-04] MEDS ORDERED: Iodixanol 320 MG/ML 100 ML BOTTLE IV ONE (18:37)
[2017-01-04 18:47] LABS: BLOOD UREA NITROGEN 33 mg/dL (9-20); CALCIUM 8.1 mg/dl (8.6-10.4); CARBON DIOXIDE 30 mmol/L (22-30); CHLORIDE 99 mmol/L (98-107); GFR AFRICAN-AMERICAN > 60; GLUCOSE,RANDOM 85 mg/dL (75-110); MAGNESIUM 1.5 mg/dL (1.6-2.3); POTASSIUM 4.3 mmol/L (3.6-5.2); SODIUM 133 mmol/L (132-148)
[2017-01-04 20:01] LABS: THYROID STIMULATING HORMONE 0.61 mIU/L (0.46-4.68)
--- NOTE | 2017-01-04 21:35 | CT ---
EXAM: CT Angiography Chest With Intravenous Contrast CLINICAL HISTORY: 61 years old, male; Pain; Chest pressure; Additional info: New onset atrial fibrillation TECHNIQUE: Axial computed tomographic angiography images of the chest with intravenous contrast using pulmonary embolism protocol. All CT scans at this facility use one or more dose reduction techniques, viz.: automated exposure control; ma/kV adjustment per patient size (including targeted exams where dose is matched to indication; i.e. head); or iterative reconstruction technique. MIP reconstructed images were created and reviewed. Coronal and sagittal reformatted images were created and reviewed. CONTRAST: 100 mL of VISIPAQUE 320 administered intravenously. COMPARISON: No relevant prior studies available. FINDINGS: Limitations: Motion artifact - mild to moderate. Pulmonary arteries: Mild enlargement of pulmonary trunk. No definite pulmonary embolism. Aorta: Mild atherosclerotic disease of aorta. Ectasia of ascending thoracic aorta, up to 4.0 cm in diameter. Lungs: Mild emphysematous changes. Minimal peripheral atelectasis/scarring. No consolidation. Pleural space: No significant effusion. No pneumothorax. Heart: Mild cardiomegaly. No significant pericardial effusion. Mediastinum: Few small foci of air about kurtis and RIGHT hilum. Bones/joints: No acute fracture. No dislocation. Soft tissues: Unremarkable. Lymph nodes: No pathologically enlarged lymph nodes. IMPRESSION: 1. No definite CT evidence of pulmonary embolism. 2. Mild pneumomediastinum, uncertain etiology. Clinical correlation is needed. 3. Incidental/non-acute findings are described above.
[2017-01-05 00:31] LABS: TROPONIN I 0.183 ng/mL (0.00-0.120)
[2017-01-05 07:13] LABS: ALB/GLOB RATIO 0.7 (1.0-2.1); ALKALINE PHOSPHATASE 103 U/L (38-126); ALT/SGPT 192 U/L (21-72); AST/SGOT 169 U/L (17-59); BILIRUBIN,TOTAL 0.5 mg/dL (0.2-1.3); BLOOD UREA NITROGEN 31 mg/dL (9-20); CALCIUM 7.5 mg/dl (8.6-10.4); CARBON DIOXIDE 22 mmol/L (22-30); CHLORIDE 104 mmol/L (98-107); GFR AFRICAN-AMERICAN > 60; GLUCOSE,RANDOM 69 mg/dL (75-110); MAGNESIUM 1.5 mg/dL (1.6-2.3); PHOSPHOROUS 2.1 mg/dL (2.5-4.5); POTASSIUM 3.6 mmol/L (3.6-5.2); SODIUM 133 mmol/L (132-148); TOTAL PROTEIN 6.1 g/dL (6.3-8.3)
--- NOTE | 2017-01-05 07:23 | PN ---
DATE: 01/03/2017 SUBJECTIVE: The patient denies any chest pain or shortness of breath. No reports of ventricular arrhythmia. PHYSICAL EXAMINATION: VITAL SIGNS: Blood pressure 137/96, heart rate 84, temperature 98.0, respirations 23. HEENT: Normocephalic. CHEST: Bilateral rhonchi. HEART: S1 and S2 regular. EXTREMITIES: No edema. LABORATORY DATA: Hemoglobin and hematocrit within normal limit. White count 2.1, platelet count 138,000. SMA-7: Sodium 130, potassium 4.4, chloride 98, CO2 of 27, glucose 78, BUN 34, creatinine 1.0. Repeat EKG revealed normal sinus rhythm, possible left atrial enlargement, LVH with repolarization changes, cannot rule out septal infarct of indeterminate age. Echocardiography study revealed mild concentric LVH, ejection fraction at a range of 40 to 45%. Left atrium is moderately dilated. Hepatitis C antibody is reactive. ASSESSMENT: 1. Chest pain and borderline troponin elevation. Consider non-ST elevation myocardial infarction. 2. Hypertension. 3. History of hepatitis. 4. Leukopenia. 5. Mildly depressed ejection fraction. RECOMMENDATIONS: Continue aspirin 81 once a day, Crestor 20 mg once a day. Change Lovenox to 30 mg subcutaneously once a day. Continue Plavix 75 mg once a day, Toprol-XL 12.5 mg daily. Increase mg once a day. The patient did refuse cardiac catheterization procedure. Atif Hand MD
--- NOTE | 2017-01-05 07:31 | PN ---
SUBJECTIVE: The patient is experiencing shortness of breath and productive cough. PHYSICAL EXAMINATION: VITAL SIGNS: Blood pressure 126/90, heart rate 73, temperature 97.8, respirations 28. HEENT: Normocephalic. CHEST: Bilateral rhonchi. HEART: S1 and S2 regular. EXTREMITIES: No edema. LABORATORY DATA: SMA-7 is within normal limits except for sodium 130 and anion gap of 34. Today's hemoglobin and hematocrit within normal limits, white count 2.6, platelet count 101,000. I did review the psychiatry evaluation and the conclusion is alcohol abuse disorder, severe CVT. ASSESSMENT: 1. Chest pain with borderline troponin elevation. 2. EtOH abuse. 3. Hepatitis C. 4. Leukopenia and thrombocytopenia. RECOMMENDATIONS: Continue aspirin 81 mg once a day, Crestor 20 mg once a day, Lovenox 30 mg once day, Plavix 75 mg once day, Zestril 5 mg once a day, thiamine 100 mg once a day. I will administer one dose of Lasix IV push now. Atif Hand MD
[2017-01-05] MEDS: Multiple Vitamins Tab PO SCH (10:12)
[2017-01-05] MEDS: Enoxaparin 30 mg Syringe SC SCH (10:12)
[2017-01-05] MEDS: Metoprolol Succinate 25 mg XL Tab PO SCH (10:13)
--- NOTE | 2017-01-05 10:31 | RAD ---
HISTORY: sob COMPARISON: Portable chest 01/04/2017. FINDINGS: LUNGS: No active pulmonary disease. PLEURA: No significant pleural effusion identified, no pneumothorax apparent. CARDIOVASCULAR: Stable cardiomegaly. No peripheral pulmonary artery or venous abnormality. Aortic ectasis is also identified however there is a border seen impression at 0 pulmonary window which does not correspond to the as descending thoracic aorta and may correspond to the dilated main pulmonary artery seen in prior chest CT 01/04/2017 suggesting pulmonary artery hypertension. OSSEOUS STRUCTURES: No significant abnormalities. VISUALIZED UPPER ABDOMEN: Normal. OTHER FINDINGS: None. IMPRESSION: 1. Stable cardiomegaly. No cephalization or CHF pattern appreciable this time on active basis. However, pulmonary artery hypertension is suggested based on the prominence of the main pulmonary artery. 2. No infiltrate pleural effusion or pneumothorax identified in the interval. 3. Stable chest radiograph compared to 01/04/2017.
[2017-01-05] MEDS ORDERED: Magnesium Sulfate 1 gm in D5W 1 GM/100 ML BAG IVPB ONE (12:13)
[2017-01-05] MEDS: Potassium & Sodium Phosphate PO SCH ×2 (13:22→18:06)
[2017-01-05] MEDS ORDERED: guaiFENesin 200 mg/10 ml Syrup UD PO PRN (13:30)
[2017-01-05 13:32] LABS: BASO % 1.1 % (0.0-2.0); EOS # 0.2 K/uL (0.0-0.7); EOS % 4.9 % (0.0-4.0); HEMATOCRIT 45.2 % (35.0-51.0); LYMPH # 1.2 K/uL (1.0-4.3); MEAN CELL VOLUME 89.3 fL (80.0-94.0); MEAN CORPUSCULAR HEMOGLOBIN 28.6 pg (27.0-31.0); MEAN CORPUSCULAR HGB CONC 32.1 g/dL (33.0-37.0); MEAN PLATELET VOLUME 9.4 fL (7.2-11.7); MONO # 0.6 K/uL (0.0-0.8); MONO % 16.9 % (0.0-10.0); NRBC % 0.3 % (0.0-2.0); RED CELL DISTRIBUTION WIDTH 16.4 % (11.5-14.5); WHITE BLOOD COUNT 3.3 K/uL (4.8-10.8)
[2017-01-05] MEDS ORDERED: Iodixanol 320 MG/ML 100 ML BOTTLE IV ONE (14:09)
[2017-01-05] MEDS ORDERED: Lidocaine 2% Inj (20ml) ONE (14:09)
[2017-01-05] MEDS ORDERED: DiphenhydrAMINE 50 mg/ml Inj ONE (14:10)
--- NOTE | 2017-01-05 14:26 | CP.PCM.PN ---
Subjective - Date & Time of Evaluation Date of Evaluation: 01/05/17 Time of Evaluation: 12:15 - Subjective Subjective: Medical Attending Note: Patient seen and examined at bedside. No acute events overnight aside from episode of atrial fibrillation. patient seen at bedside. patient reports chest pain, denies abdominal pain, denies nausea, denies vomiting, reports urinating, denies diarrhea. Objective - Vital Signs/Intake and Output Vital Signs (last 24 hours): Temp Pulse Resp BP Pulse Ox 97.6 F 100 H 27 H 113/88 98 01/05/17 04:00 01/04/17 20:00 01/05/17 04:00 01/05/17 04:00 01/05/17 04:00 Intake and Output: 01/05/17 01/05/17 06:59 18:59 Intake Total 560 Output Total 1700 Balance -1140 - Medications Medications: Current Medications Aspirin (Aspirin Chewable) 81 mg PO DAILY [facility] Last Admin: 01/05/17 10:16 Dose: 81 mg Clopidogrel Bisulfate (Plavix) 75 mg PO DAILY [facility] Last Admin: 01/05/17 10:13 Dose: 75 mg Digoxin (Lanoxin) 0.25 mg PO DAILY@1800 [facility] Enoxaparin Sodium (Lovenox) 30 mg SC DAILY [facility] Last Admin: 01/05/17 10:12 Dose: 30 mg Famotidine (Pepcid) 20 mg PO DAILY [facility] Last Admin: 01/05/17 10:12 Dose: 20 mg Folic Acid (Folic Acid) 1 mg PO DAILY [facility] Last Admin: 01/05/17 10:12 Dose: 1 mg Guaifenesin (Robitussin) 200 mg PO Q4H PRN PRN Reason: Cough and congestion Last Admin: 01/05/17 13:28 Dose: 200 mg Lisinopril (Zestril) 5 mg PO DAILY [facility] Last Admin: 01/05/17 10:14 Dose: 5 mg Lorazepam (Ativan) 1 mg IVP Q4H PRN PRN Reason: Symptoms of alcohol withdrawl Last Admin: 01/03/17 10:56 Dose: 1 mg Lorazepam (Ativan) 1 mg PO Q6 [facility] PRN Reason: Taper Stop: 01/08/17 23:14 Last Admin: 01/05/17 11:49 Dose: 1 mg Metoprolol Succinate (Toprol Xl) 25 mg PO DAILY [facility] Last Admin: 01/05/17 10:13 Dose: 25 mg Multivitamins (Hexavitamin) 1 tab PO DAILY [facility] Last Admin: 01/05/17 10:12 Dose: 1 tab Potassium Phos/Sodium Phos (Neutra-Phos) 1 pkt PO AC [facility] Stop: 01/05/17 16:31 Last Admin: 01/05/17 13:22 Dose: 1 pkt Rosuvastatin Calcium (Crestor) 20 mg PO HS [facility] Last Admin: 01/02/17 21:38 Dose: 20 mg Thiamine HCl (Vitamin B1 Tab) 100 mg PO DAILY [facility] Last Admin: 01/05/17 10:13 Dose: 100 mg - Labs Labs: 01/05/17 13:29 01/05/17 06:36 PT 10.3 SECONDS (9.7-12.2) 01/02/17 00:15 INR 0.9 01/02/17 00:15 APTT 25 SECONDS (21-34) 01/02/17 00:15 - Constitutional Appears: Non-toxic, No Acute Distress, Unkempt - Head Exam Head Exam: NORMAL INSPECTION - Eye Exam Eye Exam: EOMI - ENT Exam ENT Exam: Mucous Membranes Moist - Respiratory Exam Respiratory Exam: NORMAL BREATHING PATTERN. absent: Rales, Stridor - Cardiovascular Exam Cardiovascular Exam: REGULAR RHYTHM, +S1, +S2 - GI/Abdominal Exam GI & Abdominal Exam: Soft, Normal Bowel Sounds. absent: Distended, Firm, Guarding, Rigid, Tenderness, Rebound - Neurological Exam Neurological Exam: Alert, Awake, Oriented x3 - Skin Skin Exam: Dry, Intact, Normal Color, Warm Assessment and Plan (1) NSTEMI (non-ST elevated myocardial infarction) Status: Acute (2) Alcohol use disorder Status: Acute (3) History of hyperlipidemia Status: Chronic (4) History of hypertension Status: Chronic (5) Transaminitis Status: Acute (6) Prophylactic measure Status: Acute - Assessment and Plan (Free Text) Assessment: (1) NSTEMI (non-ST elevated myocardial infarction) Assessment & Plan: * Cardiology (Dr. Hand) on case-->help appreciated * Aspirin 81mg PO Daily * Plavix 75mg PO daily * Switched to dvt ppx dose of Lovenox 30mg subqQH * c/w Toprol XL 25mg PO Daily * held Crestor 20mg POHS 01/03 secondary to elevated LFTs * Echocardiogram (01.02.17): mild to moderate concentricl LVH, systolic function : 40-45%, laft atrium mild to moderate dilated. trace aortic regurgitation, mild tricuspid regurgitation * Labs: * Lipid panel: TGL:120, LDL<30, HDL:87 * HgbA1C:5.6 * Troponin I: 0.1630, 0.1610, 0.1270, 0.1670, will trend ROMIs * Lisinopril 5mg PO daily * proNBP: 789 * Diagnostic catherization with Dr. Hand today-->f/u post procedure Status: Acute (2) Paroxysmal Atrial Fibrillation * Cardiology (Dr. Hand) on case-->help appreciated * 01/03: Episode of Atrial Fibrillation, new onset, requiring IV lopressor, IV Digoxin, and increase Toprol XL 25mg PO daily * Aspirin 81mg PO Daily * Plavix 75mg PO daily * c/w Toprol XL 25mg PO Daily * c/w Lisinopril 5mg PO daily * c/w Digoxin 0.25mg PO daily * held Crestor 20mg POHS 01/03 secondary to elevated LFTs * Echocardiogram (01.02.17): mild to moderate concentricl LVH, systolic function : 40-45%, laft atrium mild to moderate dilated. trace aortic regurgitation, mild tricuspid regurgitation * Labs: * Lipid panel: TGL:120, LDL<30, HDL:87 * HgbA1C:5.6 * Troponin I: 0.1630, 0.1610, 0.1270, 0.1670, will trend ROMIs * proNBP: 789 * CT Angio ruled out PE Status: Acute (3) Alcohol use disorder Assessment & Plan: * Psych (Dr Sun) * patient has been drinking pint and half since the age 11. * Denies alcohol withdrawal seizures/intubation/DTs * Patient last drink 72 hours ago * MVI 1 tab PO daily * Thiamine 100mg PO daily * Folic 1mg PO daily Status: Acute (4) History of hyperlipidemia Assessment & Plan: * elevated LFTs Status: Chronic (5) History of hypertension Assessment & Plan: * Toprol XL 12.5mg PO daily * Start Lisinopril 2.5mg PO daily Status: Chronic (6) Transaminitis Assessment & Plan: * elevated * Patient refused Abdominal US r/o pathology 01/03 * hold Statin * patient is aware he has hepatitis C * Reports he had some type of treatment in [place] years ago, does not see at doctor currently Status: Acute (7) Thrombocytopenia Assessment & Plan: * decreased today mild * Switched from therapuetic to dvt ppx Lovenox 01/04 * No bleeding noted * Patient is also on Aspirin/Plavix for Nonstemi * Heme-onc (Dr. Shelbi Chung/Dr Stevens covering during the holiday) for thrombocytopenia * HIT and INGRID received pending result (8) Prophylactic measure Assessment & Plan: * Lovenox 30mg subq daily Status: Acute Disposition: * Patient to follow-up post diagnostic catherization. * f/u heme-onc; f/u HIT/INGRID
--- NOTE | 2017-01-05 15:33 | PN ---
SUBJECTIVE: The patient did develop atrial fibrillation last night which is related to sinus rhythm this morning. He does report throbbing chest pain. PHYSICAL EXAMINATION: VITAL SIGNS: Blood pressure 115/88, heart rate 96, temperature 97.6, respirations 27. HEENT: Normocephalic. CHEST: Minimal rhonchi. HEART: S1 and S2 regular. EXTREMITIES: No edema. LABORATORY DATA: Today's troponin is 0.182. Magnesium is 1.[address] angio, no definite CT evidence of pulmonary embolism. Mild pneumomediastinum, uncertain etiology. ASSESSMENT: 1. Chest pain with borderline troponin elevation. 2. Mild pneumomediastinum. 3. Mild thrombocytopenia and leukopenia. RECOMMENDATIONS: Continue aspirin 81 mg once a day, Crestor 20 mg once a day, Lanoxin 0.25 mg daily, Plavix 75 mg once a day, Toprol-XL 25 mg daily, Zestril 5 mg once a day. The patient agreed for cardiac catheterization. Procedure risk including risk of bleeding, stroke, and heart attack were fully explained to the patient. The patient accepted the risks and the procedure will be performed today. Atif Hand MD
[2017-01-05] MEDS: Digoxin 250 mcg (0.25 mg) Tab PO SCH (18:06)
--- NOTE | 2017-01-05 19:26 | CARDCATH ---
INDICATIONS: The patient is a 61-year-old male, who presented because of atypical chest pain. Cardiac enzymes were borderline elevated. Cardiac catheterization was recommended. The procedure and its risks were explained to the patient who understood and agreed for the procedure. PROCEDURES: After local infiltration of 1% lidocaine, a 6-Lao sheath was placed in the right femoral artery. Left and right coronary angiography was performed with 6-Lao JL4 and JR4 as well as AR1 diagnostic catheter. Left ventriculogram was performed with a 6-Lao pigtail catheter. The patient tolerated the procedure well without any complications. ANGIOGRAPHIC FINDINGS: Selective injection of the left coronary artery revealed left main to be a normal vessel. Left main bifurcated into medium size LAD and medium sized circumflex artery. The entire left coronary circulation was angiographically unremarkable. Nonselective injection and then selective injection of the right coronary artery revealed a small caliber codominant vessel that had 30% proximal narrowing. The left ventriculogram performed in the LOPEZ projection revealed dilated and severely hypokinetic left ventricle with ejection fraction estimated at 35%. The left ventriculogram was performed with manual injection because of a nonfunctioning power injector at the time of the cardiac catheterization. The patient did have CT angio of the chest done last night which revealed intrinsic ascending aorta which was measured at 4.2 cm. Aortogram could not be performed because of the same technical issue with left ventriculogram. CONCLUSION: Insignificant proximal narrowing of the right coronary artery with ejection fraction. RECOMMENDATIONS: Continue current medical management including beta-blockers after load reducing agents and aspirin therapy. Long-term anticoagulation will depend on the patient's compliance. I will also start the patient on 12.5 mg daily. Atif Hand MD
--- NOTE | 2017-01-06 08:56 | CP.PCM.PN ---
Subjective - Date & Time of Evaluation Date of Evaluation: 01/06/17 Time of Evaluation: 08:55 - Subjective Subjective: Medical Attending Note: Patient seen and examined at bedside. Patient reports about an hour ago, he heard voices telling him "to go away and to hurt himself" patient reports he started hearing voices about a month ago but fought them off. Patient at this time does not want to act on his voice. Patient denies chest pain, reports shortness of breathe, has mild cough at bedside, denies abdominal pain, denies nausea, denies vomitting, denies diarrhea , denies vomitting, denies dysuria. Pending CBC/CMP/Mag, portable chest, and official pulm eval. Will need to reconsult psych given his voices at bedside. Objective - Vital Signs/Intake and Output Vital Signs (last 24 hours): Temp Pulse Resp BP Pulse Ox 98.3 F 69 22 134/90 98 01/06/17 04:00 01/06/17 06:00 01/06/17 06:00 01/06/17 06:00 01/06/17 06:00 Intake and Output: 01/06/17 01/06/17 06:59 18:59 Intake Total 580 Output Total 1100 Balance -520 - Medications Medications: Current Medications Aspirin (Aspirin Chewable) 81 mg PO DAILY [facility] Last Admin: 01/05/17 10:16 Dose: 81 mg Clopidogrel Bisulfate (Plavix) 75 mg PO DAILY [facility] Last Admin: 01/05/17 10:13 Dose: 75 mg Digoxin (Lanoxin) 0.25 mg PO DAILY@1800 [facility] Last Admin: 01/05/17 18:06 Dose: 0.25 mg Enoxaparin Sodium (Lovenox) 30 mg SC DAILY [facility] Last Admin: 01/05/17 10:12 Dose: 30 mg Famotidine (Pepcid) 20 mg PO DAILY [facility] Last Admin: 01/05/17 10:12 Dose: 20 mg Folic Acid (Folic Acid) 1 mg PO DAILY [facility] Last Admin: 01/05/17 10:12 Dose: 1 mg Guaifenesin (Robitussin) 200 mg PO Q4H PRN PRN Reason: Cough and congestion Last Admin: 01/05/17 13:28 Dose: 200 mg Lisinopril (Zestril) 5 mg PO DAILY [facility] Last Admin: 01/05/17 10:14 Dose: 5 mg Lorazepam (Ativan) 1 mg IVP Q4H PRN PRN Reason: Symptoms of alcohol withdrawl Last Admin: 01/03/17 10:56 Dose: 1 mg Lorazepam (Ativan) 1 mg PO Q6 [facility] PRN Reason: Taper Stop: 01/08/17 23:14 Last Admin: 01/06/17 06:08 Dose: 1 mg Metoprolol Succinate (Toprol Xl) 25 mg PO DAILY [facility] Last Admin: 01/05/17 10:13 Dose: 25 mg Multivitamins (Hexavitamin) 1 tab PO DAILY [facility] Last Admin: 01/05/17 10:12 Dose: 1 tab Rosuvastatin Calcium (Crestor) 20 mg PO HS [facility] Last Admin: 01/02/17 21:38 Dose: 20 mg Thiamine HCl (Vitamin B1 Tab) 100 mg PO DAILY [facility] Last Admin: 01/05/17 10:13 Dose: 100 mg - Labs Labs: 01/05/17 13:29 01/05/17 06:36 PT 10.3 SECONDS (9.7-12.2) 01/02/17 00:15 INR 0.9 01/02/17 00:15 APTT 25 SECONDS (21-34) 01/02/17 00:15 - Constitutional Appears: Non-toxic, No Acute Distress, Unkempt - Head Exam Head Exam: NORMAL INSPECTION - Eye Exam Eye Exam: EOMI - ENT Exam ENT Exam: Mucous Membranes Moist - Respiratory Exam Respiratory Exam: NORMAL BREATHING PATTERN. absent: Rales, Rhonchi - Cardiovascular Exam Cardiovascular Exam: REGULAR RHYTHM, +S1, +S2 - GI/Abdominal Exam GI & Abdominal Exam: Soft, Normal Bowel Sounds. absent: Distended, Firm, Guarding, Rigid, Tenderness, Rebound - Extremities Exam Extremities Exam: absent: Pedal Edema, Tenderness - Neurological Exam Neurological Exam: Alert, Awake, Oriented x3 Neuro motor strength exam: Left Upper Extremity: 5, Right Upper Extremity: 5, Left Lower Extremity: 5, Right Lower Extremity: 5 - Psychiatric Exam Psychiatric exam: Normal Affect, Normal Mood. absent: Anxious, Homicidal Ideation, Suicidal Ideation - Skin Skin Exam: Dry, Normal Color, Warm Assessment and Plan (1) NSTEMI (non-ST elevated myocardial infarction) Status: Acute (2) Alcohol use disorder Status: Acute (3) History of hyperlipidemia Status: Chronic (4) History of hypertension Status: Chronic (5) Transaminitis Status: Acute (6) Auditory hallucination Status: Acute (7) Pneumomediastinum Status: Acute (8) Prophylactic measure Status: Acute - Assessment and Plan (Free Text) Assessment: (1) NSTEMI (non-ST elevated myocardial infarction) Assessment & Plan: * Cardiology (Dr. Hand) on case-->help appreciated * Aspirin 81mg PO Daily * Plavix 75mg PO daily * Switched to dvt ppx dose of Lovenox 30mg subqQH * c/w Toprol XL 25mg PO Daily * held Crestor 20mg POHS 01/03 secondary to elevated LFTs * Echocardiogram (01.02.17): mild to moderate concentricl LVH, systolic function : 40-45%, laft atrium mild to moderate dilated. trace aortic regurgitation, mild tricuspid regurgitation * Labs: * Lipid panel: TGL:120, LDL<30, HDL:87 * HgbA1C:5.6 * Troponin I: 0.1630, 0.1610, 0.1270, 0.1670, will trend ROMIs * Lisinopril 5mg PO daily * proNBP: 789 * Diagnostic catherization with Dr. Hand 01/05-->insignificant proximal narrowing of the right coronary artery w EF: 35%. Recommending continue current medical management including beta blockers after load reducing agents and aspirin therapy. 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 Will also start patient on -- 12.5mg PO daily (med dropped from dictation) * Given Lasix 40mg IV X1 and order for Lasix PO Status: Acute (2) Paroxysmal Atrial Fibrillation * Cardiology (Dr. Hand) on case-->help appreciated * 01/03: Episode of Atrial Fibrillation, new onset, requiring IV lopressor, IV Digoxin, and increase Toprol XL 25mg PO daily * 01/04: in sinus * 01/05: in sinus; order for Lasix 40mg IV X1 given elevated proBNP * Aspirin 81mg PO Daily * Plavix 75mg PO daily * c/w Toprol XL 25mg PO Daily * c/w Lisinopril 5mg PO daily * c/w Digoxin 0.25mg PO daily * held Crestor 20mg POHS 01/03 secondary to elevated LFTs * Echocardiogram (01.02.17): mild to moderate concentricl LVH, systolic function : 40-45%, laft atrium mild to moderate dilated. trace aortic regurgitation, mild tricuspid regurgitation * Labs: * Lipid panel: TGL:120, LDL<30, HDL:87 * HgbA1C:5.6 * Troponin I: 0.1630, 0.1610, 0.1270, 0.1670, will trend ROMIs * proNBP: 789 * CT Angio ruled out PE Status: Acute (3) Alcohol use disorder Assessment & Plan: * Psych (Dr Sun) * patient has been drinking pint and half since the age 11. * Denies alcohol withdrawal seizures/intubation/DTs * Patient last drink 72 hours ago * MVI 1 tab PO daily * Thiamine 100mg PO daily * Folic 1mg PO daily Status: Acute (4) History of hyperlipidemia Assessment & Plan: * elevated LFTs Status: Chronic (5) History of hypertension Assessment & Plan: * Toprol XL 12.5mg PO daily * Start Lisinopril 2.5mg PO daily Status: Chronic (6) Transaminitis History of Hepatitis C Assessment & Plan: * elevated * Patient refused Abdominal US r/o pathology 01/03 * hold Statin * patient is aware he has hepatitis C * Reports he had some type of treatment in [place] years ago, does not see at doctor currently Status: Acute (7) Thrombocytopenia Assessment & Plan: * pending blood work today * Switched from therapuetic to dvt ppx Lovenox 01/04 * No bleeding noted * Patient is also on Aspirin/Plavix for Nonstemi * Heme-onc (Dr. Shelbi Chung/Dr Stevens covering during the holiday) for thrombocytopenia * HIT and INGRID received pending result (8) Mild Pneumomediastinum on CT Chest Assessment & Plan: * Pending official pulm eval off CT Chest finding * Order for repeat chest xray for today (9) Prophylactic measure Assessment & Plan: * Lovenox 30mg subq daily Status: Acute Disposition: * Pending blood work from this morning * Ordered for portable chest xray * Pending official pulm eval * Will need to follow-up with psych given patient is hearing voices.
[2017-01-06] MEDS: Multiple Vitamins Tab PO SCH (09:57)
[2017-01-06] MEDS: Enoxaparin 30 mg Syringe SC SCH (09:58)
[2017-01-06] MEDS: Promethazine/Cod 6.25mg-10mg/5ml Syr UD PO PRN ×2 (09:58→17:57)
[2017-01-06] MEDS: Metoprolol Succinate 25 mg XL Tab PO SCH (09:59)
[2017-01-06 12:26] LABS: BASO % 0.3 % (0.0-2.0); EOS % 0.2 % (0.0-4.0); HEMATOCRIT 46.7 % (35.0-51.0); LYMPH # 1.1 K/uL (1.0-4.3); LYMPH % 14.2 % (20.0-40.0); MEAN CELL VOLUME 88.6 fL (80.0-94.0); MEAN CORPUSCULAR HEMOGLOBIN 28.5 pg (27.0-31.0); MEAN CORPUSCULAR HGB CONC 32.1 g/dL (33.0-37.0); MEAN PLATELET VOLUME 9.4 fL (7.2-11.7); MONO # 0.8 K/uL (0.0-0.8); MONO % 10.3 % (0.0-10.0); NRBC % 0.1 % (0.0-2.0); RED CELL DISTRIBUTION WIDTH 16.5 % (11.5-14.5)
--- NOTE | 2017-01-06 12:30 | PCM.PYCHPN ---
Psychiatric Progress Note - Psychiatric Progress Note Patient seen today, length of contact: 18 min Patient Chief Complaint: "I see shadows, hear things" Problems Identified/Issues Discussed: Pt is seen, chart reviewed, case discussed. Dr. Shaw alerted the newspaper writer that he had mentioned to her psychotic sxs; hearing voices/seeing things. He is seen, in ICU. Detox is ongoing w/o complications. He is oriented in all 3 spheres with minor mistakes and with some paucity, but he looks alert and attentive. Mood is described as "anxious" but not necessarily sad/depressed. Affect was full and he was NOT thought disordered. He did report vague auditory (hears name whispered or things like "get out of the way") and visual ("as if someone passed by") halluc. No delusions attached. No tactile or other sensory phenomena. He has no SI or plan, in fact he is future-oriented, wants help with rehab plans. He has insomnia and is very worried about his after care. These plus being in ICU and going through detox may have caused the hallucinations. Otherwise he doesn't look like in delirium, major depression or a psychotic break for now. He agreed to use low dose Risperidone for three days and trazodone prn insomnia. He thanked for rehab advice, ie [facility] in [place]. Medication Change: Yes (add risperdal and trazodone) Medical Record Reviewed: Yes Mental Status Examination - Cognitive Function Orientation: Person, Place, Situation, Time Memory: Intact Attention: Poor Concentration: Poor Association: WNL Fund of Knowledge: Poor - Mood Mood: Depressed (less), Anxious - Affect Affect: Constricted - Speech Speech: Appropriate - Formal Thought Process Formal Thought Process: Hallucinations - Suicidal Ideation Suicidal Ideation: No - Homicidal Ideation Homicidal Ideation: No Goal/Treatment Plan - Goal/Treatment Plan Need for Continued Stay: Severe functional impairment, Other (medical) Progress Toward Problem(s) and Goals/Treatment Plan: Continue and complete detox Support and psychoed Risperdal x 3 days Trazodone prn - for a month or so May also benefit from low dose gabapentin SW to [place] [facility] psych sxs and MSE Dr. Sun to follow
[2017-01-06 12:31] LABS: WHITE BLOOD COUNT 7.8 K/uL (4.8-10.8)
[2017-01-06 12:40] LABS: ALB/GLOB RATIO 1.2 (1.0-2.1); ALKALINE PHOSPHATASE 97 U/L (38-126); ALT/SGPT 208 U/L (21-72); AST/SGOT 153 U/L (17-59); BILIRUBIN,TOTAL 0.7 mg/dL (0.2-1.3); BLOOD UREA NITROGEN 30 mg/dL (9-20); CALCIUM 9.1 mg/dl (8.6-10.4); CARBON DIOXIDE 25 mmol/L (22-30); CHLORIDE 100 mmol/L (98-107); GFR AFRICAN-AMERICAN > 60; GLUCOSE,RANDOM 117 mg/dL (75-110); MAGNESIUM 1.6 mg/dL (1.6-2.3); POTASSIUM 3.8 mmol/L (3.6-5.2); SODIUM 134 mmol/L (132-148); TOTAL PROTEIN 6.8 g/dL (6.3-8.3)
--- NOTE | 2017-01-06 13:24 | RAD ---
HISTORY: shortness of breathe COMPARISON: Comparison chest radiograph and CTA chest both dated 01/04/2017 FINDINGS: LUNGS: Mild centrilobular emphysema less well seen on this study as compared to high-resolution CT chest. No focal consolidation. PLEURA: No significant pleural effusion identified, no pneumothorax apparent. CARDIOVASCULAR: Cardiomegaly with left ventricular configuration. OSSEOUS STRUCTURES: No significant abnormalities. VISUALIZED UPPER ABDOMEN: Normal. OTHER FINDINGS: None. IMPRESSION: No focal consolidation. Mild emphysema. . Cardiomegaly with left ventricular configuration.
--- NOTE | 2017-01-06 16:54 | CARD ---
APPROVED REPORT EKG Measurement Heart [id number] <Conclusion> Normal sinus rhythm Left axis deviation Left ventricular hypertrophy with repolarization abnormality Abnormal ECG
--- NOTE | 2017-01-06 16:54 | CARD ---
APPROVED REPORT EKG Measurement Heart [id number] <Conclusion> Atrial fibrillation with premature ventricular or aberrantly conducted complexes Voltage criteria for left ventricular hypertrophy ST & Marked T wave abnormality, consider lateral ischemia Abnormal ECG
[2017-01-06] MEDS: Digoxin 250 mcg (0.25 mg) Tab PO SCH (17:51)
--- NOTE | 2017-01-06 19:59 | PN ---
SUBJECTIVE: The patient denies any chest pain. He complained of insomnia last night. No reported breathing. PHYSICAL EXAMINATION: VITAL SIGNS: Blood pressure 118/75, heart rate 77, temperature 97.9, respirations 25. HEENT: Normocephalic. CHEST: Minimal rhonchi. HEART: S1 and S2 regular. EXTREMITIES: No groin hematoma. LABORATORY DATA: Today SMA-7 is within normal limit except for glucose of 117 and BUN of 30. Today's hemoglobin, hematocrit, and white count are within normal limit, platelet count is below normal at 109. ASSESSMENT: 1. right coronary artery disease. 2. Atypical chest pain. 3. Mild thrombocytopenia. 4. Congestive heart failure with significant ejection fraction which was estimated at 35% by the cardiac catheterization. RECOMMENDATIONS: Continue aspirin 81 mg once a day, Crestor 20 mg once a day, Lanoxin 0.25 mg daily, Lasix 20 mg once a day, Lovenox 30 mg once a day and discontinue Plavix. Continue Toprol 25 mg once a day and Zestril at 5 mg once a day. Long-term anticoagulation should be considered in view of CHF and paroxysmal atrial fibrillation if the patient proves to be compliant as an outpatient. Atif Hand MD
[2017-01-07 06:36] LABS: BASO % 0.4 % (0.0-2.0); EOS # 0.1 K/uL (0.0-0.7); EOS % 1.9 % (0.0-4.0); HEMATOCRIT 43.8 % (35.0-51.0); MEAN CELL VOLUME 89.2 fL (80.0-94.0); MEAN CORPUSCULAR HEMOGLOBIN 29.3 pg (27.0-31.0); MEAN CORPUSCULAR HGB CONC 32.9 g/dL (33.0-37.0); MEAN PLATELET VOLUME 10.4 fL (7.2-11.7); MONO # 0.5 K/uL (0.0-0.8); MONO % 8.3 % (0.0-10.0); NRBC % 0.1 % (0.0-2.0); RED CELL DISTRIBUTION WIDTH 16.5 % (11.5-14.5); WHITE BLOOD COUNT 5.5 K/uL (4.8-10.8)
[2017-01-07 06:55] LABS: ALB/GLOB RATIO 0.8 (1.0-2.1); ALKALINE PHOSPHATASE 77 U/L (38-126); ALT/SGPT 197 U/L (21-72); AST/SGOT 155 U/L (17-59); BILIRUBIN,TOTAL 0.4 mg/dL (0.2-1.3); BLOOD UREA NITROGEN 36 mg/dL (9-20); CALCIUM 8.9 mg/dl (8.6-10.4); CARBON DIOXIDE 25 mmol/L (22-30); CHLORIDE 103 mmol/L (98-107); GFR AFRICAN-AMERICAN > 60; GLUCOSE,RANDOM 82 mg/dL (75-110); MAGNESIUM 1.6 mg/dL (1.6-2.3); PHOSPHOROUS 3.5 mg/dL (2.5-4.5); POTASSIUM 3.8 mmol/L (3.6-5.2); SODIUM 136 mmol/L (132-148); TOTAL PROTEIN 6.5 g/dL (6.3-8.3)
[2017-01-07 07:44] VITALS: RESP 20
[2017-01-07] MEDS: Multiple Vitamins Tab PO SCH (09:46)
[2017-01-07] MEDS: Metoprolol Succinate 25 mg XL Tab PO SCH (09:47)
[2017-01-07] MEDS: Enoxaparin 30 mg Syringe SC SCH (09:49)
--- NOTE | 2017-01-07 13:00 | CP.PCM.PN ---
<Lonnie Carlson - Last Filed: 01/07/17 12:35> Subjective - Date & Time of Evaluation Date of Evaluation: 01/07/17 Time of Evaluation: 13:04 - Subjective Subjective: PGY2 Note for Dr. Shaw Patient seen and examined at bedside this AM; denies any acute complaints or events overnight; denies fevers/chills, [place], CP, SOB, abdominal pain, N/V/D, dysuria/freq/urg or lower extremity pain/swelling. Objective - Vital Signs/Intake and Output Vital Signs (last 24 hours): Temp Pulse Resp BP Pulse Ox 97.8 F 82 20 141/97 H 97 01/07/17 07:43 01/07/17 07:43 01/07/17 07:43 01/07/17 09:46 01/07/17 07:43 Intake and Output: 01/07/17 01/07/17 06:59 18:59 Intake Total 550 Output Total 700 Balance -150 - Medications Medications: Current Medications Acetaminophen (Tylenol 325mg Tab) 650 mg PO Q8H PRN PRN Reason: Headache Last Admin: 01/07/17 09:48 Dose: 650 mg Aspirin (Aspirin Chewable) 81 mg PO DAILY [facility] Last Admin: 01/07/17 09:47 Dose: 81 mg Digoxin (Lanoxin) 0.25 mg PO DAILY@1800 [facility] Last Admin: 01/06/17 17:51 Dose: 0.25 mg Enoxaparin Sodium (Lovenox) 30 mg SC DAILY [facility] Last Admin: 01/07/17 09:49 Dose: 30 mg Famotidine (Pepcid) 20 mg PO DAILY [facility] Last Admin: 01/07/17 09:47 Dose: 20 mg Folic Acid (Folic Acid) 1 mg PO DAILY [facility] Last Admin: 01/07/17 09:56 Dose: 1 mg Furosemide (Lasix) 20 mg PO DAILY [facility] Last Admin: 01/07/17 09:46 Dose: 20 mg Lisinopril (Zestril) 5 mg PO DAILY [facility] Last Admin: 01/07/17 09:47 Dose: 5 mg Lorazepam (Ativan) 1 mg IVP Q4H PRN PRN Reason: Symptoms of alcohol withdrawl Last Admin: 01/03/17 10:56 Dose: 1 mg Lorazepam (Ativan) 1 mg PO Q8 [facility] PRN Reason: Taper Stop: 01/08/17 23:14 Last Admin: 01/07/17 05:55 Dose: 1 mg Metoprolol Succinate (Toprol Xl) 25 mg PO DAILY [facility] Last Admin: 01/07/17 09:47 Dose: 25 mg Multivitamins (Hexavitamin) 1 tab PO DAILY [facility] Last Admin: 01/07/17 09:46 Dose: 1 tab Promethazine HCl/Codeine (Phenergan/Codeine Oral Syrup) 5 ml PO Q4 PRN PRN Reason: Cough Last Admin: 01/06/17 17:57 Dose: 5 ml Risperidone (Risperdal Tab) 0.5 mg PO QPM [facility] Stop: 01/09/17 18:01 Last Admin: 01/06/17 17:51 Dose: 0.5 mg Rosuvastatin Calcium (Crestor) 20 mg PO HS [facility] Last Admin: 01/02/17 21:38 Dose: 20 mg Thiamine HCl (Vitamin B1 Tab) 100 mg PO DAILY [facility] Last Admin: 01/07/17 09:56 Dose: 100 mg Trazodone HCl (Desyrel) 50 mg PO HS [facility] Last Admin: 01/06/17 21:49 Dose: 50 mg - Labs Labs: 01/07/17 06:30 01/07/17 06:30 PT 10.3 SECONDS (9.7-12.2) 01/02/17 00:15 INR 0.9 01/02/17 00:15 APTT 25 SECONDS (21-34) 01/02/17 00:15 - Constitutional Appears: Well, Non-toxic - Head Exam Head Exam: ATRAUMATIC - Eye Exam Eye Exam: EOMI Pupil Exam: PERRL - ENT Exam ENT Exam: Mucous Membranes Moist - Neck Exam Neck Exam: Full ROM. absent: Lymphadenopathy - Respiratory Exam Respiratory Exam: Clear to Ausculation Bilateral - Cardiovascular Exam Cardiovascular Exam: REGULAR RHYTHM, +S1, +S2, Murmur - GI/Abdominal Exam GI & Abdominal Exam: Soft, Normal Bowel Sounds - Rectal Exam Rectal Exam: NORMAL INSPECTION - Extremities Exam Extremities Exam: absent: Calf Tenderness - Back Exam Back Exam: absent: CVA tenderness (L), CVA tenderness (R) - Neurological Exam Neurological Exam: Alert, Awake, Oriented x3 - Psychiatric Exam Psychiatric exam: Normal Affect - Skin Skin Exam: Warm Assessment and Plan - Assessment and Plan (Free Text) Assessment: NSTEMI (non-ST elevated myocardial infarction) * Cardiology (Dr. Hand) on case-->help appreciated * Aspirin 81mg PO Daily * Plavix 75mg PO daily * Switched to dvt ppx dose of Lovenox 30mg subqQH * c/w Toprol XL 25mg PO Daily * held Crestor 20mg POHS 01/03 secondary to elevated LFTs * Echocardiogram (01.02.17): mild to moderate concentricl LVH, systolic function : 40-45%, laft atrium mild to moderate dilated. trace aortic regurgitation, mild tricuspid regurgitation * Labs: * Lipid panel: TGL:120, LDL<30, HDL:87 * HgbA1C:5.6 * Troponin I: 0.1630, 0.1610, 0.1270, 0.1670, will trend ROMIs * Lisinopril 5mg PO daily * proNBP: 789 * Diagnostic catherization with Dr. Hand 01/05-->insignificant proximal narrowing of the right coronary artery w EF: 35%. Recommending continue current medical management including beta blockers after load reducing agents and aspirin therapy. skilled nursing anticoagulation will depend on patient's compliance. Will also start patient on -- 12.5mg PO daily (med dropped from dictation) * Given Lasix 40mg IV X1 and order for Lasix PO Paroxysmal Atrial Fibrillation * Cardiology (Dr. Hand) on case-->help appreciated * 01/03: Episode of Atrial Fibrillation, new onset, requiring IV lopressor, IV Digoxin, and increase Toprol XL 25mg PO daily * 01/04: in sinus * 01/05: in sinus; order for Lasix 40mg IV X1 given elevated proBNP * Aspirin 81mg PO Daily * Plavix 75mg PO daily * c/w Toprol XL 25mg PO Daily * c/w Lisinopril 5mg PO daily * c/w Digoxin 0.25mg PO daily * held Crestor 20mg POHS 01/03 secondary to elevated LFTs * Echocardiogram (01.02.17): mild to moderate concentricl LVH, systolic function : 40-45%, laft atrium mild to moderate dilated. trace aortic regurgitation, mild tricuspid regurgitation * Labs: * Lipid panel: TGL:120, LDL<30, HDL:87 * HgbA1C:5.6 * Troponin I: 0.1630, 0.1610, 0.1270, 0.1670, will trend ROMIs * proNBP: 789 * CT Angio ruled out PE Alcohol use disorder;pt desires rehab not in acute withdrawal * Psych (Dr Sun) * patient has been drinking pint and half since the age 11. * Denies alcohol withdrawal seizures/intubation/DTs * Patient last drink 72 hours ago * MVI 1 tab PO daily * Thiamine 100mg PO daily * Folic 1mg PO daily History of hyperlipidemia * elevated LFTs History of hypertension * Toprol XL 12.5mg PO daily * Start Lisinopril 2.5mg PO daily Transaminitis most likely 2/2 History of Hepatitis C * Patient refused Abdominal US r/o pathology 01/03 * hold Statin * patient is aware he has hepatitis C * Reports he had some type of treatment in [place] years ago, does not see at doctor currently Thrombocytopenia * pending blood work today * Switched from therapuetic to dvt ppx Lovenox 01/04 * No bleeding noted * Patient is also on Aspirin/Plavix for Nonstemi * Heme-onc (Dr. Shelbi Chung/Dr Stevesn covering during the holiday) for thrombocytopenia * HIT and INGRID received pending result Mild Pneumomediastinum on CT Chest; asymptomatic * Pending official pulm eval off CT Chest finding according to literature this is most likely a benign finding, however we would appreciate a formal opinion Prophylactic measure * Lovenox 30mg subq daily Disposition: * Ordered for portable chest xray * Pending official pulm eval * patient is ammenable to rehab at [facility]; s/w f/u needed <Sharon Shaw V - Last Filed: 01/07/17 16:53> Objective - Vital Signs/Intake and Output Vital Signs (last 24 hours): Temp Pulse Resp BP Pulse Ox 97.8 F 82 20 141/97 H 97 01/07/17 07:43 01/07/17 07:43 01/07/17 07:43 01/07/17 09:46 01/07/17 07:43 Intake and Output: 01/07/17 01/07/17 06:59 18:59 Intake Total 550 Output Total 700 Balance -150 - Medications Medications: Current Medications Acetaminophen (Tylenol 325mg Tab) 650 mg PO Q8H PRN PRN Reason: Headache Last Admin: 01/07/17 09:48 Dose: 650 mg Aspirin (Aspirin Chewable) 81 mg PO DAILY [facility] Last Admin: 01/07/17 09:47 Dose: 81 mg Digoxin (Lanoxin) 0.25 mg PO DAILY@1800 [facility] Last Admin: 01/06/17 17:51 Dose: 0.25 mg Enoxaparin Sodium (Lovenox) 30 mg SC DAILY [facility] Last Admin: 01/07/17 09:49 Dose: 30 mg Famotidine (Pepcid) 20 mg PO DAILY [facility] Last Admin: 01/07/17 09:47 Dose: 20 mg Folic Acid (Folic Acid) 1 mg PO DAILY [facility] Last Admin: 01/07/17 09:56 Dose: 1 mg Furosemide (Lasix) 20 mg PO DAILY [facility] Last Admin: 01/07/17 09:46 Dose: 20 mg Lisinopril (Zestril) 5 mg PO DAILY [facility] Last Admin: 01/07/17 09:47 Dose: 5 mg Lorazepam (Ativan) 1 mg IVP Q4H PRN PRN Reason: Symptoms of alcohol withdrawl Last Admin: 01/03/17 10:56 Dose: 1 mg Lorazepam (Ativan) 1 mg PO Q8 [facility] PRN Reason: Taper Stop: 01/08/17 23:14 Last Admin: 01/07/17 13:36 Dose: 1 mg Metoprolol Succinate (Toprol Xl) 25 mg PO DAILY [facility] Last Admin: 01/07/17 09:47 Dose: 25 mg Multivitamins (Hexavitamin) 1 tab PO DAILY [facility] Last Admin: 01/07/17 09:46 Dose: 1 tab Promethazine HCl/Codeine (Phenergan/Codeine Oral Syrup) 5 ml PO Q4 PRN PRN Reason: Cough Last Admin: 01/06/17 17:57 Dose: 5 ml Risperidone (Risperdal Tab) 0.5 mg PO QPM [facility] Stop: 01/09/17 18:01 Last Admin: 01/06/17 17:51 Dose: 0.5 mg Rosuvastatin Calcium (Crestor) 20 mg PO HS [facility] Last Admin: 01/02/17 21:38 Dose: 20 mg Thiamine HCl (Vitamin B1 Tab) 100 mg PO DAILY [facility] Last Admin: 01/07/17 09:56 Dose: 100 mg Trazodone HCl (Desyrel) 50 mg PO HS [facility] Last Admin: 01/06/17 21:49 Dose: 50 mg - Labs Labs: 01/07/17 06:30 01/07/17 06:30 PT 10.3 SECONDS (9.7-12.2) 01/02/17 00:15 INR 0.9 01/02/17 00:15 APTT 25 SECONDS (21-34) 01/02/17 00:15 Assessment and Plan (1) NSTEMI (non-ST elevated myocardial infarction) Status: Acute (2) Alcohol use disorder Status: Acute (3) History of hyperlipidemia Status: Chronic (4) History of hypertension Status: Chronic (5) Transaminitis Status: Acute (6) Auditory hallucination Status: Acute (7) Pneumomediastinum Status: Acute (8) Prophylactic measure Status: Acute Attending/Attestation - Attestation I have personally seen and examined this patient.: Yes I have fully participated in the care of the patient.: Yes I have reviewed all pertinent clinical information, including history, physical exam and plan: Yes Notes (Text): Please refer to my note which is for the same date.
[2017-01-07] MEDS ORDERED: Tramadol 25 mg PO ONE (15:38)
--- NOTE | 2017-01-07 16:45 | CP.PCM.PN ---
Subjective - Date & Time of Evaluation Date of Evaluation: 01/07/17 Time of Evaluation: 14:00 - Subjective Subjective: Medical Attending Note Patient seen and examined at bedside. Patient transferred from out from ICU to the telemetry floor. Patient seen walking, reports he washed himself, denies reports mild headache, shortness of breathe, denies chest pain, denies nausea, denies vomitting, denies abdominal pain, denies dysuria, and denies hematuria. Objective - Vital Signs/Intake and Output Vital Signs (last 24 hours): Temp Pulse Resp BP Pulse Ox 97.8 F 82 20 141/97 H 97 01/07/17 07:43 01/07/17 07:43 01/07/17 07:43 01/07/17 09:46 01/07/17 07:43 Intake and Output: 01/07/17 01/07/17 06:59 18:59 Intake Total 550 Output Total 700 Balance -150 - Medications Medications: Current Medications Acetaminophen (Tylenol 325mg Tab) 650 mg PO Q8H PRN PRN Reason: Headache Last Admin: 01/07/17 09:48 Dose: 650 mg Aspirin (Aspirin Chewable) 81 mg PO DAILY [facility] Last Admin: 01/07/17 09:47 Dose: 81 mg Digoxin (Lanoxin) 0.25 mg PO DAILY@1800 [facility] Last Admin: 01/06/17 17:51 Dose: 0.25 mg Enoxaparin Sodium (Lovenox) 30 mg SC DAILY [facility] Last Admin: 01/07/17 09:49 Dose: 30 mg Famotidine (Pepcid) 20 mg PO DAILY [facility] Last Admin: 01/07/17 09:47 Dose: 20 mg Folic Acid (Folic Acid) 1 mg PO DAILY [facility] Last Admin: 01/07/17 09:56 Dose: 1 mg Furosemide (Lasix) 20 mg PO DAILY [facility] Last Admin: 01/07/17 09:46 Dose: 20 mg Lisinopril (Zestril) 5 mg PO DAILY [facility] Last Admin: 01/07/17 09:47 Dose: 5 mg Lorazepam (Ativan) 1 mg IVP Q4H PRN PRN Reason: Symptoms of alcohol withdrawl Last Admin: 01/03/17 10:56 Dose: 1 mg Lorazepam (Ativan) 1 mg PO Q8 [facility] PRN Reason: Taper Stop: 01/08/17 23:14 Last Admin: 01/07/17 13:36 Dose: 1 mg Metoprolol Succinate (Toprol Xl) 25 mg PO DAILY [facility] Last Admin: 01/07/17 09:47 Dose: 25 mg Multivitamins (Hexavitamin) 1 tab PO DAILY [facility] Last Admin: 01/07/17 09:46 Dose: 1 tab Promethazine HCl/Codeine (Phenergan/Codeine Oral Syrup) 5 ml PO Q4 PRN PRN Reason: Cough Last Admin: 01/06/17 17:57 Dose: 5 ml Risperidone (Risperdal Tab) 0.5 mg PO QPM [facility] Stop: 01/09/17 18:01 Last Admin: 01/06/17 17:51 Dose: 0.5 mg Rosuvastatin Calcium (Crestor) 20 mg PO HS [facility] Last Admin: 01/02/17 21:38 Dose: 20 mg Thiamine HCl (Vitamin B1 Tab) 100 mg PO DAILY [facility] Last Admin: 01/07/17 09:56 Dose: 100 mg Trazodone HCl (Desyrel) 50 mg PO HS [facility] Last Admin: 01/06/17 21:49 Dose: 50 mg - Labs Labs: 01/07/17 06:30 01/07/17 06:30 PT 10.3 SECONDS (9.7-12.2) 01/02/17 00:15 INR 0.9 01/02/17 00:15 APTT 25 SECONDS (21-34) 01/02/17 00:15 - Constitutional Appears: Unkempt, Cachectic, Chronically Ill - Head Exam Head Exam: NORMAL INSPECTION - Eye Exam Eye Exam: EOMI - ENT Exam ENT Exam: Mucous Membranes Moist - Respiratory Exam Respiratory Exam: NORMAL BREATHING PATTERN. absent: Rales, Rhonchi - Cardiovascular Exam Cardiovascular Exam: REGULAR RHYTHM, +S1, +S2 - GI/Abdominal Exam GI & Abdominal Exam: Soft, Normal Bowel Sounds. absent: Distended, Firm, Guarding, Rigid, Tenderness, Rebound - Extremities Exam Extremities Exam: absent: Pedal Edema, Tenderness - Neurological Exam Neurological Exam: Alert, Awake, Oriented x3 - Skin Skin Exam: Dry, Normal Color, Warm Assessment and Plan (1) NSTEMI (non-ST elevated myocardial infarction) Status: Acute (2) Alcohol use disorder Status: Acute (3) History of hyperlipidemia Status: Chronic (4) History of hypertension Status: Chronic (5) Transaminitis Status: Acute (6) Auditory hallucination Status: Acute (7) Pneumomediastinum Status: Acute (8) Prophylactic measure Status: Acute - Assessment and Plan (Free Text) Assessment: (1) NSTEMI (non-ST elevated myocardial infarction) Assessment & Plan: * Cardiology (Dr. Hand) on case-->help appreciated * Aspirin 81mg PO Daily * Plavix 75mg PO daily * Switched to dvt ppx dose of Lovenox 30mg subqQH * c/w Toprol XL 25mg PO Daily * held Crestor 20mg POHS 01/03 secondary to elevated LFTs * Echocardiogram (01.02.17): mild to moderate concentricl LVH, systolic function : 40-45%, laft atrium mild to moderate dilated. trace aortic regurgitation, mild tricuspid regurgitation * Labs: * Lipid panel: TGL:120, LDL<30, HDL:87 * HgbA1C:5.6 * Troponin I: 0.1630, 0.1610, 0.1270, 0.1670, will trend ROMIs * Lisinopril 5mg PO daily * Diagnostic catherization with Dr. Hand 01/05-->insignificant proximal narrowing of the right coronary artery w EF: 35%. Recommending continue current medical management including beta blockers after load reducing agents and aspirin therapy. assisted anticoagulation will depend on patient's compliance. Will also start patient on -- 12.5mg PO daily (med dropped from dictation) * Lasix 20mg PO daily Status: Acute (2) Paroxysmal Atrial Fibrillation * Cardiology (Dr. Hand) on case-->help appreciated * 01/03: Episode of Atrial Fibrillation, new onset, requiring IV lopressor, IV Digoxin, and increase Toprol XL 25mg PO daily * 01/04: in sinus * 01/05: in sinus; order for Lasix 40mg IV X1 given elevated proBNP * Aspirin 81mg PO Daily * Plavix 75mg PO daily * c/w Toprol XL 25mg PO Daily * c/w Lisinopril 5mg PO daily * c/w Digoxin 0.25mg PO daily * held Crestor 20mg POHS 01/03 secondary to elevated LFTs * Echocardiogram (01.02.17): mild to moderate concentricl LVH, systolic function : 40-45%, laft atrium mild to moderate dilated. trace aortic regurgitation, mild tricuspid regurgitation * Labs: * Lipid panel: TGL:120, LDL<30, HDL:87 * HgbA1C:5.6 * Troponin I: 0.1630, 0.1610, 0.1270, 0.1670, will trend ROMIs * proNBP: 789 * CT Angio ruled out PE Status: Acute (3) Alcohol use disorder Assessment & Plan: * Psych (Dr Sun) * patient has been drinking pint and half since the age 11. * Denies alcohol withdrawal seizures/intubation/DTs * Patient last drink 72 hours ago * MVI 1 tab PO daily * Thiamine 100mg PO daily * Folic 1mg PO daily Status: Acute (4) History of hyperlipidemia Assessment & Plan: * elevated LFTs Status: Chronic (5) History of hypertension Assessment & Plan: * Toprol XL 12.5mg PO daily * Start Lisinopril 2.5mg PO daily Status: Chronic (6) Transaminitis History of Hepatitis C Assessment & Plan: * elevated * Patient refused Abdominal US r/o pathology 01/03 * hold Statin * patient is aware he has hepatitis C * Reports he had some type of treatment in [place] years ago, does not see at doctor currently Status: Acute (7) Thrombocytopenia Assessment & Plan: * pending blood work today * Switched from therapuetic to dvt ppx Lovenox 01/04 * No bleeding noted * Patient is also on Aspirin/Plavix for Nonstemi * Heme-onc (Dr. Shelbi Chung/Dr Stevens covering during the holiday) for thrombocytopenia * HIT and INGRID received pending result (8) Mild Pneumomediastinum on CT Chest Assessment & Plan: * Pending official pulm eval off CT Chest finding-->has not made any recommendations in the past 48 hours-->will cancel * Has been called by chief wheelage clerk in the ICU on initial, Resident has called left message yesterday and resident called today. * New conult for Pulmonary (Bhaskar):abnormal CT Chest, shortness of breathe * Chest xray (01/06/17): No focal consolidation, mild emphysema, cardiomegaly with left ventricular configuration (9) Prophylactic measure Assessment & Plan: * Lovenox 30mg subq daily Status: Acute Disposition: * Pending pulm consult * Pending pulm consult; for discharge planning
[2017-01-07] MEDS: Digoxin 250 mcg (0.25 mg) Tab PO SCH (17:25)
[2017-01-07] MEDS: Enoxaparin 60 mg Syringe SC SCH (18:25)
--- NOTE | 2017-01-07 18:46 | CP.PCM.CON ---
Past Patient History - Past Medical History & Family History Past Medical History?: Yes - Past Social History Smoking Status: Heavy Smoker > 10 Cigarettes Daily - CARDIAC Hx Congestive Heart Failure: Yes Hx Hypertension: Yes - MUSCULOSKELETAL/RHEUMATOLOGICAL Hx Falls: No - PSYCHIATRIC Hx Substance Use: Yes - SURGICAL HISTORY Hx Surgeries: No Meds Allergies/Adverse Reactions: Allergies Allergy/AdvReac Type Severity Reaction Status Date / Time No Known Allergies Allergy Verified 01/01/17 21:54 - Medications Medications: Current Medications Acetaminophen (Tylenol 325mg Tab) 650 mg PO Q8H PRN PRN Reason: Headache Last Admin: 01/07/17 09:48 Dose: 650 mg Aspirin (Aspirin Chewable) 81 mg PO DAILY [facility] Last Admin: 01/07/17 09:47 Dose: 81 mg Digoxin (Lanoxin) 0.25 mg PO DAILY@1800 [facility] Last Admin: 01/07/17 17:25 Dose: 0.25 mg Enoxaparin Sodium (Lovenox) 60 mg SC BID [facility] Last Admin: 01/07/17 18:25 Dose: 60 mg Famotidine (Pepcid) 20 mg PO DAILY [facility] Last Admin: 01/07/17 09:47 Dose: 20 mg Folic Acid (Folic Acid) 1 mg PO DAILY [facility] Last Admin: 01/07/17 09:56 Dose: 1 mg Furosemide (Lasix) 20 mg PO DAILY [facility] Last Admin: 01/07/17 09:46 Dose: 20 mg Lisinopril (Zestril) 5 mg PO DAILY [facility] Last Admin: 01/07/17 09:47 Dose: 5 mg Lorazepam (Ativan) 1 mg PO Q8 [facility] PRN Reason: Taper Stop: 01/08/17 23:14 Last Admin: 01/07/17 13:36 Dose: 1 mg Metoprolol Succinate (Toprol Xl) 25 mg PO DAILY [facility] Last Admin: 01/07/17 09:47 Dose: 25 mg Multivitamins (Hexavitamin) 1 tab PO DAILY [facility] Last Admin: 01/07/17 09:46 Dose: 1 tab Promethazine HCl/Codeine (Phenergan/Codeine Oral Syrup) 5 ml PO Q4 PRN PRN Reason: Cough Last Admin: 01/06/17 17:57 Dose: 5 ml Risperidone (Risperdal Tab) 0.5 mg PO QPM [facility] Stop: 01/09/17 18:01 Last Admin: 01/07/17 18:24 Dose: 0.5 mg Rosuvastatin Calcium (Crestor) 20 mg PO HS [facility] Last Admin: 01/02/17 21:38 Dose: 20 mg Thiamine HCl (Vitamin B1 Tab) 100 mg PO DAILY [facility] Last Admin: 01/07/17 09:56 Dose: 100 mg Trazodone HCl (Desyrel) 50 mg PO HS [facility] Last Admin: 01/06/17 21:49 Dose: 50 mg Results - Vital Signs Recent Vital Signs: Last Vital Signs Temp 97.8 F 01/07/17 15:50 Pulse 72 01/07/17 15:50 Resp 20 01/07/17 15:50 BP 117/80 01/07/17 15:50 Pulse Ox 96 01/07/17 15:50 - Labs Result Diagrams: 01/07/17 06:30 01/07/17 06:30 Labs: Laboratory Results - last 24 hr 01/07/17 01/07/17 06:30 06:30 WBC 5.5 RBC 4.91 Hgb 14.4 Hct 43.8 MCV 89.2 MCH 29.3 MCHC 32.9 L RDW 16.5 H Plt Count 107 L Manual Plt Count 104 L MPV 10.4 Neut % (Auto) 71.4 Lymph % (Auto) 18.0 L [place] % (Auto) 8.3 Eos % (Auto) 1.9 Baso % (Auto) 0.4 Neut # 3.9 Lymph # 1.0 [place] # 0.5 Eos # 0.1 Baso # 0.0 Sodium 136 Potassium 3.8 Chloride 103 Carbon Dioxide 25 Anion Gap 12 BUN 36 H Creatinine 1.1 Est GFR ( Amer) > 60 Est GFR (Non-Af Amer) > 60 Random Glucose 82 Calcium 8.9 Phosphorus 3.5 Magnesium 1.6 Total Bilirubin 0.4 AST 155 H ALT 197 H Alkaline Phosphatase 77 NT-Pro-B Natriuret Pep 991 H Total Protein 6.5 Albumin 3.0 L Globulin 3.6 Albumin/Globulin Ratio 0.8 L
--- NOTE | 2017-01-07 20:30 | PN ---
SUBJECTIVE: The patient was experiencing palpitation. Review of rhythm strips reveal atrial flutter with 6:1 conduction. PHYSICAL EXAMINATION: VITAL SIGNS: He is currently in sinus tachycardia, blood pressure 141/96, heart rate 82, temperature 97.8 and respirations 20. HEENT: Normocephalic. CHEST: Bilateral rhonchi. HEART: S1 and S2 regular. EXTREMITIES: No edema. LABORATORY DATA: Today's hemoglobin, hematocrit and white count are within normal limit. Platelet count is 104,000. Today's SMA-7 is within normal limits except for a BUN of 36. ASSESSMENT: 1. Paroxysmal atrial fibrillation and atrial flutter. 2. Hypertension. 3. Congestive heart failure. RECOMMENDATIONS: Continue Zestril at 5 mg once a day, Toprol-XL 25 mg once a day, increase Lovenox to 60 mg subcutaneous twice a day and continue digoxin 0.25 mg daily. Obtain 12-lead EKG and venous Doppler of lower extremities. Atif Hand MD
[2017-01-08 08:20] LABS: BASO % 1.4 % (0.0-2.0); EOS # 0.1 K/uL (0.0-0.7); EOS % 3.2 % (0.0-4.0); HEMATOCRIT 41.9 % (35.0-51.0); LYMPH # 0.9 K/uL (1.0-4.3); LYMPH % 34.5 % (20.0-40.0); MEAN CELL VOLUME 88.8 fL (80.0-94.0); MEAN CORPUSCULAR HEMOGLOBIN 29.2 pg (27.0-31.0); MEAN CORPUSCULAR HGB CONC 32.8 g/dL (33.0-37.0); MEAN PLATELET VOLUME 10.7 fL (7.2-11.7); MONO # 0.4 K/uL (0.0-0.8); MONO % 15.3 % (0.0-10.0); NRBC % 0.1 % (0.0-2.0); RED CELL DISTRIBUTION WIDTH 16.3 % (11.5-14.5)
[2017-01-08 08:28] LABS: WHITE BLOOD COUNT 2.8 K/uL (4.8-10.8)
[2017-01-08 09:09] LABS: ALKALINE PHOSPHATASE 78 U/L (38-126); ALT/SGPT 186 U/L (21-72); AST/SGOT 157 U/L (17-59); BILIRUBIN,TOTAL 0.7 mg/dL (0.2-1.3); BLOOD UREA NITROGEN 32 mg/dL (9-20); CALCIUM 8.5 mg/dl (8.6-10.4); CARBON DIOXIDE 28 mmol/L (22-30); CHLORIDE 100 mmol/L (98-107); GFR AFRICAN-AMERICAN > 60; GLUCOSE,RANDOM 80 mg/dL (75-110); MAGNESIUM 1.4 mg/dL (1.6-2.3); PHOSPHOROUS 3.7 mg/dL (2.5-4.5); POTASSIUM 3.8 mmol/L (3.6-5.2); SODIUM 133 mmol/L (132-148); TOTAL PROTEIN 5.4 g/dL (6.3-8.3)
--- NOTE | 2017-01-08 09:34 | CARD ---
APPROVED REPORT EKG Measurement Heart [id number] <Conclusion> Normal sinus rhythm Left ventricular hypertrophy with repolarization abnormality Abnormal ECG
--- NOTE | 2017-01-08 09:35 | CARD ---
APPROVED REPORT EKG Measurement Heart [id number] <Conclusion> Atrial fibrillation ST & T wave abnormality, consider lateral ischemia Abnormal ECG
[2017-01-08] MEDS: Multiple Vitamins Tab PO SCH (09:57)
[2017-01-08] MEDS: Enoxaparin 60 mg Syringe SC SCH (09:58)
[2017-01-08] MEDS: Metoprolol Succinate 25 mg XL Tab PO SCH (09:58)
[2017-01-08] MEDS: Magnesium Sulfate 1 gm in D5W 1 GM/100 ML BAG IVPB SCH ×2 (11:41→12:15)
--- NOTE | 2017-01-08 15:49 | PN ---
SUBJECTIVE: The patient denies any palpitation. Earlier, the patient was found to have runs of atrial fibrillation with aberrancy on the monitor. PHYSICAL EXAMINATION: VITAL SIGNS: Blood pressure 148/95, heart rate 60, temperature 97.5, respirations 20. HEENT: Normocephalic. CHEST: Bilateral rhonchi. HEART: S1 and S2 regular. EXTREMITIES: No edema. LABORATORY DATA: Hemoglobin and hematocrit 13.8 and 41.9. White count 2.8, platelet count 100,000. Today's SMA-7 is within normal limit except for BUN of 32 and anion gap of 9. A venous Doppler of lower extremity was performed, report is still pending. ASSESSMENT: 1. Cardiomyopathy. 2. Paroxysmal atrial fibrillation and atrial flutter. 3. EtOH abuse. RECOMMENDATIONS: Continue aspirin 81 mg once a day, Crestor 20 mg once a day, digoxin 0.25 mg once a day, Toprol-XL 25 mg daily, Zestril 5 mg once a day. Discontinue Lovenox and start Eliquis at 2.5 mg twice a day. Atif Hand MD
[2017-01-08 16:14] LABS: HEPARIN-IND PLATELET AB Negative (Negative)
--- NOTE | 2017-01-08 16:42 | CP.PCM.PN ---
<Sarah Roland - Last Filed: 01/08/17 18:32> Subjective - Date & Time of Evaluation Date of Evaluation: 01/08/17 Time of Evaluation: 16:38 - Subjective Subjective: Progress Note for Dr. Hartman Patient seen and examined at bedside. No acute events overnight. Patient admits to discomfort of his left chest which has been occurring since admission. Patient has no other complaints. No headaches, dizziness, blood in stool, shortness of breath, cough, constipation Objective - Vital Signs/Intake and Output Vital Signs (last 24 hours): Temp Pulse Resp BP Pulse Ox 97.5 F L 73 20 126/80 96 01/08/17 15:45 01/08/17 15:45 01/08/17 15:45 01/08/17 15:45 01/08/17 15:45 Intake and Output: 01/08/17 01/08/17 06:59 18:59 Intake Total 480 Output Total 0 Balance 480 - Medications Medications: Current Medications Acetaminophen (Tylenol 325mg Tab) 650 mg PO Q8H PRN PRN Reason: Headache Last Admin: 01/07/17 09:48 Dose: 650 mg Apixaban (Eliquis) 2.5 mg PO BID [facility] Aspirin (Aspirin Chewable) 81 mg PO DAILY [facility] Last Admin: 01/08/17 09:57 Dose: 81 mg Digoxin (Lanoxin) 0.25 mg PO DAILY@1800 [facility] Last Admin: 01/07/17 17:25 Dose: 0.25 mg Famotidine (Pepcid) 20 mg PO DAILY [facility] Last Admin: 01/08/17 09:58 Dose: 20 mg Folic Acid (Folic Acid) 1 mg PO DAILY [facility] Last Admin: 01/08/17 09:57 Dose: 1 mg Furosemide (Lasix) 20 mg PO DAILY [facility] Last Admin: 01/08/17 09:58 Dose: 20 mg Lactic Acid (Lac-Hydrin 12% Lotion (225 G)) 0 gm EXT BID [facility] Lisinopril (Zestril) 5 mg PO DAILY [facility] Last Admin: 01/08/17 09:58 Dose: 5 mg Lorazepam (Ativan) 1 mg PO Q24H [facility] PRN Reason: Taper Stop: 01/08/17 23:14 Last Admin: 01/07/17 23:38 Dose: Not Given Metoprolol Succinate (Toprol Xl) 25 mg PO DAILY [facility] Last Admin: 01/08/17 09:58 Dose: 25 mg Multivitamins (Hexavitamin) 1 tab PO DAILY [facility] Last Admin: 01/08/17 09:57 Dose: 1 tab Promethazine HCl/Codeine (Phenergan/Codeine Oral Syrup) 5 ml PO Q4 PRN PRN Reason: Cough Last Admin: 01/06/17 17:57 Dose: 5 ml Risperidone (Risperdal Tab) 0.5 mg PO QPM [facility] Stop: 01/09/17 18:01 Last Admin: 01/07/17 18:24 Dose: 0.5 mg Rosuvastatin Calcium (Crestor) 20 mg PO HS [facility] Last Admin: 01/02/17 21:38 Dose: 20 mg Thiamine HCl (Vitamin B1 Tab) 100 mg PO DAILY [facility] Last Admin: 01/08/17 09:57 Dose: 100 mg Trazodone HCl (Desyrel) 50 mg PO HS [facility] Last Admin: 01/07/17 21:18 Dose: 50 mg - Labs Labs: 01/08/17 08:13 01/08/17 08:13 PT 10.3 SECONDS (9.7-12.2) 01/02/17 00:15 INR 0.9 01/02/17 00:15 APTT 25 SECONDS (21-34) 01/02/17 00:15 - Constitutional Appears: Non-toxic - Head Exam Head Exam: NORMAL INSPECTION - Eye Exam Eye Exam: EOMI, Normal appearance - ENT Exam ENT Exam: Mucous Membranes Moist - Respiratory Exam Respiratory Exam: NORMAL BREATHING PATTERN. absent: Decreased Breath Sounds, Rales, Rhonchi, Wheezes - Cardiovascular Exam Cardiovascular Exam: +S1, +S2. absent: JVD - GI/Abdominal Exam GI & Abdominal Exam: Soft. absent: Tenderness - Extremities Exam Extremities Exam: Full ROM. absent: Pedal Edema - Neurological Exam Neurological Exam: Alert, Awake - Psychiatric Exam Psychiatric exam: Normal Affect, Normal Mood - Skin Skin Exam: Dry, Intact, Warm Assessment and Plan - Assessment and Plan (Free Text) Assessment: paroxysmal atrial fibrillation, Atrial flutter/arrhythmia Eliquis 2.5 mg POBID ASA 81 mg POQD digoxin 0.25mg PO QD Hyperlipidemia Rosuvastatin 20mg POQHS transaminitis, hepatitis C psoitive 01/03 abdominal US refused by patient Patient is aware he has hepatitis C and was treated in [place], [place] years ago HTN Furosemide 20mg POQD lisinopril 5mg POQD Toprol XL 25mg POQD alcohol use disorder folic acid 1mg POQD Multivitamins 1 tab POQD Vitamin B1 100mg POQD Lorazepam 1mg POQD Per DR. Sun risperidone 0.5mg POQPM thrombocytopenia HIT negative Pain Tramadol 25mg PO once 01/07 Trazodone 50mg POQHS mild pneumomediastinum on CT chest, asymptomatic Dr. Muro Pulmonology consult Patient is stable, consider CT surgery consult DR. Juarez CT surgery consult promethazine/codein [id number] PRN, dc 01/08 prophylaxis Pepcid 20mg POQD discussed with DR. Errol Roland DO PGY1 <Errol Hartman - Last Filed: 01/08/17 21:41> Objective - Vital Signs/Intake and Output Vital Signs (last 24 hours): Temp Pulse Resp BP Pulse Ox 97.5 F L 74 20 126/80 96 01/08/17 15:45 01/08/17 20:25 01/08/17 15:45 01/08/17 15:45 01/08/17 15:45 Intake and Output: 01/08/17 01/09/17 18:59 06:59 Intake Total 480 Output Total 0 Balance 480 - Medications Medications: Current Medications Acetaminophen (Tylenol 325mg Tab) 650 mg PO Q8H PRN PRN Reason: Headache Last Admin: 01/08/17 21:05 Dose: 650 mg Apixaban (Eliquis) 2.5 mg PO BID [facility] Last Admin: 01/08/17 17:39 Dose: 2.5 mg Aspirin (Aspirin Chewable) 81 mg PO DAILY [facility] Last Admin: 01/08/17 09:57 Dose: 81 mg Digoxin (Lanoxin) 0.25 mg PO DAILY@1800 [facility] Last Admin: 01/08/17 17:39 Dose: 0.25 mg Famotidine (Pepcid) 20 mg PO DAILY [facility] Last Admin: 01/08/17 09:58 Dose: 20 mg Folic Acid (Folic Acid) 1 mg PO DAILY [facility] Last Admin: 01/08/17 09:57 Dose: 1 mg Furosemide (Lasix) 20 mg PO DAILY [facility] Last Admin: 01/08/17 09:58 Dose: 20 mg Lactic Acid (Lac-Hydrin 12% Lotion (225 G)) 0 gm EXT BID [facility] Last Admin: 01/08/17 17:38 Dose: 1 applic Lisinopril (Zestril) 5 mg PO DAILY [facility] Last Admin: 01/08/17 09:58 Dose: 5 mg Lorazepam (Ativan) 1 mg PO Q24H [facility] PRN Reason: Taper Stop: 01/08/17 23:14 Last Admin: 01/07/17 23:38 Dose: Not Given Metoprolol Succinate (Toprol Xl) 25 mg PO DAILY [facility] Last Admin: 01/08/17 09:58 Dose: 25 mg Multivitamins (Hexavitamin) 1 tab PO DAILY [facility] Last Admin: 01/08/17 09:57 Dose: 1 tab Risperidone (Risperdal Tab) 0.5 mg PO QPM [facility] Stop: 01/09/17 18:01 Last Admin: 01/08/17 17:39 Dose: 0.5 mg Rosuvastatin Calcium (Crestor) 20 mg PO HS [facility] Last Admin: 01/02/17 21:38 Dose: 20 mg Thiamine HCl (Vitamin B1 Tab) 100 mg PO DAILY [facility] Last Admin: 01/08/17 09:57 Dose: 100 mg Trazodone HCl (Desyrel) 50 mg PO HS [facility] Last Admin: 01/08/17 21:05 Dose: 50 mg - Labs Labs: 01/08/17 08:13 01/08/17 08:13 PT 10.3 SECONDS (9.7-12.2) 01/02/17 00:15 INR 0.9 01/02/17 00:15 APTT 25 SECONDS (21-34) 01/02/17 00:15 Attending/Attestation - Attestation I have personally seen and examined this patient.: Yes I have fully participated in the care of the patient.: Yes I have reviewed all pertinent clinical information, including history, physical exam and plan: Yes Notes (Text): 01/08/17 21:32 Patient was seen and examined at 2:25 PM 01/08/17 560 A Exam, Assessment and Plan were thoroughly gone over with the resident. Also on Exam: Extremities: hyperkeratosis bilateral pedal surface feet Assessments: 1). NSTEMI/Systolic Heart Failure S/P Cardiac Cath 01/05/17 that showed insignificant proximal narrowing RCA with EF estimated at 35%. Medical management for now as per Cardiology Dr. Hand Echo 01/02/17 showed mild to moderate LVH with systolic dysfunction and EF estimated at 40 t 45 % with mild to moderate LA dilation Crestor, ASA, Lisinopril, Metoprolol XL 2). Paroxysmal Atrial Fibrillation Digoxin ASA Eliquis CT Angio Chest: NO PE Bilateral Venous Dopplers Legs: Negative 3). Alcohol Use Disorder Finished Taper 01/08/17 NO signs of withdrawl on exam Thiamine, Folic Acid, MVI 4). HLD Crestor 5). HTN Lasix, Lisinopril, Metoprolol 6). Hx Hepatitis C Stated that he had unspecified treatment at unspecified hospital in [place]. Refused U/S Abdomen 01/03/17 7). Hearing Voices This was on 01/06/17 and he was seen by Psychiatry Dr. Rivera on 01/06/17 and was started on Resperdone 0.5 mg PO QHS Patient stated that the voices have not since returned 8). Thrombocytopenia Stable at 100 HIT Abs are negative 9). Mild Pneumomediastinum on CT Chest Spoke with [employer] Supervisor working with CardioThoracic Surgeon Dr. Juarez and they will see patient and make recommendations for further workup if necessary 10). Hyperkeratosis Bilateral Feet Lac Hydrin Topical 2x/day Once seen by CardioThoracic Surgery and if NO workup recommended then patient will be discharged to [facility] in [place]. This information was relayed to Supervisor [employer] Margarito.
[2017-01-08] MEDS: Ammonium Lactate 12% Lotion (225 g) EXT SCH (17:38)
[2017-01-08] MEDS: Digoxin 250 mcg (0.25 mg) Tab PO SCH (17:39)
[2017-01-08 17:40] VITALS: PULSE 60
[2017-01-08 18:02] LABS: UFH SRA RESULT Negative (Negative)
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
--- NOTE | 2017-01-08 21:47 | CP.PCM.CON ---
History of Present Illness - History of Present Illness History of Present Illness: dictated Past Patient History - Past Medical History & Family History Past Medical History?: Yes - Past Social History Smoking Status: Heavy Smoker > 10 Cigarettes Daily - CARDIAC Hx Congestive Heart Failure: Yes Hx Hypertension: Yes - MUSCULOSKELETAL/RHEUMATOLOGICAL Hx Falls: No - PSYCHIATRIC Hx Substance Use: Yes - SURGICAL HISTORY Hx Surgeries: No Meds Allergies/Adverse Reactions: Allergies Allergy/AdvReac Type Severity Reaction Status Date / Time No Known Allergies Allergy Verified 01/01/17 21:54 - Medications Medications: Current Medications Acetaminophen (Tylenol 325mg Tab) 650 mg PO Q8H PRN PRN Reason: Headache Last Admin: 01/08/17 21:05 Dose: 650 mg Apixaban (Eliquis) 2.5 mg PO BID [facility] Last Admin: 01/08/17 17:39 Dose: 2.5 mg Aspirin (Aspirin Chewable) 81 mg PO DAILY [facility] Last Admin: 01/08/17 09:57 Dose: 81 mg Digoxin (Lanoxin) 0.25 mg PO DAILY@1800 [facility] Last Admin: 01/08/17 17:39 Dose: 0.25 mg Famotidine (Pepcid) 20 mg PO DAILY [facility] Last Admin: 01/08/17 09:58 Dose: 20 mg Folic Acid (Folic Acid) 1 mg PO DAILY [facility] Last Admin: 01/08/17 09:57 Dose: 1 mg Furosemide (Lasix) 20 mg PO DAILY [facility] Last Admin: 01/08/17 09:58 Dose: 20 mg Lactic Acid (Lac-Hydrin 12% Lotion (225 G)) 0 gm EXT BID [facility] Last Admin: 01/08/17 17:38 Dose: 1 applic Lisinopril (Zestril) 5 mg PO DAILY [facility] Last Admin: 01/08/17 09:58 Dose: 5 mg Lorazepam (Ativan) 1 mg PO Q24H [facility] PRN Reason: Taper Stop: 01/08/17 23:14 Last Admin: 01/07/17 23:38 Dose: Not Given Metoprolol Succinate (Toprol Xl) 25 mg PO DAILY [facility] Last Admin: 01/08/17 09:58 Dose: 25 mg Multivitamins (Hexavitamin) 1 tab PO DAILY [facility] Last Admin: 01/08/17 09:57 Dose: 1 tab Risperidone (Risperdal Tab) 0.5 mg PO QPM [facility] Stop: 01/09/17 18:01 Last Admin: 01/08/17 17:39 Dose: 0.5 mg Rosuvastatin Calcium (Crestor) 20 mg PO HS [facility] Last Admin: 01/02/17 21:38 Dose: 20 mg Thiamine HCl (Vitamin B1 Tab) 100 mg PO DAILY [facility] Last Admin: 01/08/17 09:57 Dose: 100 mg Trazodone HCl (Desyrel) 50 mg PO HS [facility] Last Admin: 01/08/17 21:05 Dose: 50 mg Results - Vital Signs Recent Vital Signs: Last Vital Signs Temp 97.5 F L 01/08/17 15:45 Pulse 74 01/08/17 20:25 Resp 20 01/08/17 15:45 BP 126/80 01/08/17 15:45 Pulse Ox 96 01/08/17 15:45 - Labs Result Diagrams: 01/08/17 08:13 01/08/17 08:13 Labs: Laboratory Results - last 24 hr 01/05/17 01/05/17 01/08/17 06:36 06:36 08:13 WBC RBC Hgb Hct MCV MCH MCHC RDW Plt Count MPV Neut % (Auto) Lymph % (Auto) Dade % (Auto) Eos % (Auto) Baso % (Auto) Neut # Lymph # Dade # Eos # Baso # Sodium Potassium Chloride Carbon Dioxide Anion Gap BUN Creatinine Est GFR ( Amer) Est GFR (Non-Af Amer) Random Glucose Calcium Phosphorus Magnesium Total Bilirubin AST ALT Alkaline Phosphatase Total Protein Albumin Globulin Albumin/Globulin Ratio UF Heparin Interp Negative Digoxin 0.9 Heparin-induced Plt Ab Negative INGRID UFH Low Dose 0.1 0 INGRID UFH Low Dose 0.5 0 INGRID UFH High Dose 100 0 01/08/17 01/08/17 08:13 08:13 WBC 2.8 L RBC 4.72 Hgb 13.8 Hct 41.9 MCV 88.8 MCH 29.2 MCHC 32.8 L RDW 16.3 H Plt Count 100 L MPV 10.7 Neut % (Auto) 45.6 L Lymph % (Auto) 34.5 Dade % (Auto) 15.3 H Eos % (Auto) 3.2 Baso % (Auto) 1.4 Neut # 1.2 L Lymph # 0.9 L Dade # 0.4 Eos # 0.1 Baso # 0.0 Sodium 133 Potassium 3.8 Chloride 100 Carbon Dioxide 28 Anion Gap 9 L BUN 32 H Creatinine 0.9 Est GFR ( Amer) > 60 Est GFR (Non-Af Amer) > 60 Random Glucose 80 Calcium 8.5 L Phosphorus 3.7 Magnesium 1.4 L Total Bilirubin 0.7 AST 157 H ALT 186 H Alkaline Phosphatase 78 Total Protein 5.4 L Albumin 2.8 L Globulin 2.7 Albumin/Globulin Ratio 1.0 UF Heparin Interp Digoxin Heparin-induced Plt Ab INGRID UFH Low Dose 0.1 INGRID UFH Low Dose 0.5 INGRID UFH High Dose 100
[2017-01-09 00:16] VITALS: TEMP 97.3
[2017-01-09 08:11] VITALS: O2SAT 99
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
--- NOTE | 2017-01-09 09:29 | CP.PCM.DIS ---
Provider - Provider Date of Admission: 01/02/17 03:28 Attending physician: Sharon Shaw DO Consults: Cardiology consult Dr. Hand General Sugery/CT surgery consult: Dr. Juarez Infectious disease cosult: Dr. Elizondo heme/oncology Dr. Chung thrombocytopenia pulmonology: Dr. Muro Time Spent in preparation of Discharge (in minutes): 45 Hospital Course - Lab Results Lab Results: Micro Results 01/07/17 04:39 Nose MRSA Culture - Final MRSA NOT DETECTED 01/02/17 Unknown Naris MRSA Culture (Admit) - Final MRSA NOT DETECTED Most Recent Lab Values WBC 2.8 K/uL (4.8-10.8) L 01/08/17 08:13 RBC 4.72 Mil/uL (4.40-5.90) 01/08/17 08:13 Hgb 13.8 g/dL (12.0-18.0) 01/08/17 08:13 Hct 41.9 % (35.0-51.0) 01/08/17 08:13 MCV 88.8 fL (80.0-94.0) 01/08/17 08:13 MCH 29.2 pg (27.0-31.0) 01/08/17 08:13 MCHC 32.8 g/dL (33.0-37.0) L 01/08/17 08:13 RDW 16.3 % (11.5-14.5) H 01/08/17 08:13 Plt Count 100 K/uL (130-400) L 01/08/17 08:13 Manual Plt Count 104 K/uL (130-400) L 01/07/17 06:30 MPV 10.7 fL (7.2-11.7) 01/08/17 08:13 Neut % (Auto) 45.6 % (50.0-75.0) L 01/08/17 08:13 Lymph % (Auto) 34.5 % (20.0-40.0) 01/08/17 08:13 [place] % (Auto) 15.3 % (0.0-10.0) H 01/08/17 08:13 Eos % (Auto) 3.2 % (0.0-4.0) 01/08/17 08:13 Baso % (Auto) 1.4 % (0.0-2.0) 01/08/17 08:13 Neut # 1.2 K/uL (1.8-7.0) L 01/08/17 08:13 Lymph # 0.9 K/uL (1.0-4.3) L 01/08/17 08:13 [place]ah # 0.4 K/uL (0.0-0.8) 01/08/17 08:13 Eos # 0.1 K/uL (0.0-0.7) 01/08/17 08:13 Baso # 0.0 K/uL (0.0-0.2) 01/08/17 08:13 Neutrophils % (Manual) 39 % (50-75) L 01/04/17 06:16 Lymphocytes % (Manual) 38 % (20-40) 01/04/17 06:16 Reactive Lymphs % 12 % (0-0) H 01/02/17 00:15 Monocytes % (Manual) 21 % (0-10) H 01/04/17 06:16 Eosinophils % (Manual) 2 % (0-4) 01/04/17 06:16 Toxic Granulation Present 01/04/17 06:16 Platelet Estimate Slightly decreased (NORMAL) L 01/04/17 06:16 Large Platelets Present 01/04/17 06:16 Giant Platelets Present 01/04/17 06:16 Polychromasia Slight 01/04/17 06:16 Hypochromasia (manual) Slight 01/04/17 06:16 Poikilocytosis (manual Slight 01/03/17 06:25 Anisocytosis (manual) Moderate 01/04/17 06:16 Macrocytosis (manual) Slight 01/04/17 06:16 Target Cells Slight 01/04/17 06:16 PT 10.3 SECONDS (9.7-12.2) 01/02/17 00:15 INR 0.9 01/02/17 00:15 APTT 25 SECONDS (21-34) 01/02/17 00:15 Sodium 133 mmol/L (132-148) 01/08/17 08:13 Potassium 3.8 mmol/L (3.6-5.2) 01/08/17 08:13 Chloride 100 mmol/L (98-107) 01/08/17 08:13 Carbon Dioxide 28 mmol/L (22-30) 01/08/17 08:13 Anion Gap 9 (10-20) L 01/08/17 08:13 BUN 32 mg/dL (9-20) H 01/08/17 08:13 Creatinine 0.9 mg/dL (0.8-1.5) 01/08/17 08:13 Est GFR ( Amer) > 60 01/08/17 08:13 Est GFR (Non-Af Amer) > 60 01/08/17 08:13 POC Glucose (mg/dL) 91 mg/dL (65-110) 01/05/17 11:24 Random Glucose 80 mg/dL (75-110) 01/08/17 08:13 Hemoglobin A1c 5.6 % (4.2-6.5) 01/02/17 14:13 Calcium 8.5 mg/dl (8.6-10.4) L 01/08/17 08:13 Phosphorus 3.7 mg/dL (2.5-4.5) 01/08/17 08:13 Magnesium 1.4 mg/dL (1.6-2.3) L 01/08/17 08:13 Total Bilirubin 0.7 mg/dL (0.2-1.3) 01/08/17 08:13 AST 157 U/L (17-59) H 01/08/17 08:13 ALT 186 U/L (21-72) H 01/08/17 08:13 Alkaline Phosphatase 78 U/L (38-126) 01/08/17 08:13 Total Creatine Kinase 30 U/L (55-170) L 01/05/17 06:36 CK-MB (Mass) 2.16 ng/mL (0.0-3.38) 01/05/17 06:36 Troponin I 0.1820 ng/mL (0.00-0.120) H* 01/05/17 06:36 NT-Pro-B Natriuret Pep 991 pg/mL (0-900) H 01/07/17 06:30 Total Protein 5.4 g/dL (6.3-8.3) L 01/08/17 08:13 Albumin 2.8 g/dL (3.5-5.0) L 01/08/17 08:13 Globulin 2.7 gm/dL (2.2-3.9) 01/08/17 08:13 Albumin/Globulin Ratio 1.0 (1.0-2.1) 01/08/17 08:13 Triglycerides 71 mg/dL (0-149) 01/02/17 14:13 Cholesterol 120 mg/dL (0-199) 01/02/17 14:13 LDL Cholesterol Direct < 30 mg/dL (0-129) 01/02/17 14:13 HDL Cholesterol 87 mg/dL (30-70) H 01/02/17 14:13 UF Heparin Interp Negative (Negative) 01/05/17 06:36 TSH 3rd Generation 0.61 mIU/L (0.46-4.68) 01/04/17 18:33 Digoxin 0.9 ng/mL (0.8-2.0) 01/08/17 08:13 Urine Opiates Screen Positive (NEGATIVE) H 01/02/17 13:46 Urine Methadone Screen Negative (NEGATIVE) 01/02/17 13:46 Ur Barbiturates Screen Negative (NEGATIVE) 01/02/17 13:46 Ur Phencyclidine Scrn Negative (NEGATIVE) 01/02/17 13:46 Ur Amphetamines Screen Negative (NEGATIVE) 01/02/17 13:46 U Benzodiazepines Scrn Negative (NEGATIVE) 01/02/17 13:46 U Oth Cocaine Metabols Negative (NEGATIVE) 01/02/17 13:46 U Cannabinoids Screen Negative (NEGATIVE) 01/02/17 13:46 Heparin-induced Plt Ab Negative (Negative) 01/05/17 06:36 INGRID UFH Low Dose 0.1 0 % Release 01/05/17 06:36 INGRID UFH Low Dose 0.5 0 % Release 01/05/17 06:36 INGRID UFH High Dose 100 0 % Release 01/05/17 06:36 Hepatitis A IgM Ab Negative (NEGATIVE) 01/03/17 10:21 Hep Bs Antigen Negative (NEGATIVE) 01/03/17 10:21 Hep Bs Antibody Negative (NEGATIVE) 01/09/17 06:54 Hep B Core IgM Ab Negative (NEGATIVE) 01/03/17 10:21 Hepatitis C Antibody Reactive (NEGATIVE) 01/03/17 10:21 HIV 1&2 Antibody Screen Negative (NEGATIVE) 01/04/17 23:34 - Hospital Course Hospital Course: HPI Patient is a 61 y/o M with PMHx of HTN, HLD, CHF who presents today for new onset shortness of breath and chest pain. Patient said the SOB and chest pain awoke him at 6:30 am. Patient said the chest pain was on the left side and he rated it 7/10. Patient said the pain did not radiate anywhere. Patient had one episode where the left side of his body was shaking and he said it felt like a seizure, but it resolved spontaneously. Patient had two episodes of non bloody vomiting. Patient says last BM was 2 days ago. Currently in ED patient denies SOB, chest pain, palpitations, abdominal pain, nausea, vomiting, dysuria. Hospital Course During hospital stay, patient reports that he is doing well and has no complaints. Patient denies chest pain, sob, palpitations, dizziness, fever, chills, nausea, vomiting, left arm numbness or tingling. Patient reported he had difficulty sleeping during the beginning of hospital course, but admitted to sleeping better during the course of his stay. Dr. Sun was consulted to speak to the patient and it was discussed about his alcohol use. Patient reports alcohol use, 2-4 pints regularly with the last drink 1 day ago before admission. He reports auditory hallucinations that do not command him to harm self or others. He denies any visual hallucinations or feelings of paranoia. Dr. Sun placed patient on an ativan taper with ativan PRN. Suggesting CBT, psychoeducation, supportive therapy, individual therapy. 01/06, patient told hospitalist attending that he heard voices telling him to go away and to hurt himself. Patient resports he started hearing voices. Dr. Sun was notified. Patient was in ICU at the time undergoing detox. Patient reported vague auditory hears name whispered or things like "get out of the way " and visual "as if someone passed by" events. Patient was worked up for thrombocytopenia and was found to be HIT negative. Patient had a history of Hepatitis C and was treated for it in [place] years ago. Patient has elevated transaminitis that is resolving. Patient was found to have mild pneumomediastinum on CT chest. Dr. Juarez cardiothoracic surgeon was consulted and a repeat CT chest with contrast was ordered. No change since previous one, but was cleared for discharged to follow up in two weeks with imaging. Patient was also found to have hyperkeratosis of bilateral feet. Lac hydrin Topical was ordered for twice a day for the patient. Patient was discharged with instructions to "please follow up with a new CT chest in 2 weeks to monitor status of pneumomediastinum. return to ED if symptoms of chest pain worsen. follow up with cardiothoracic surgeon if symptoms worsen (increased chest pain, crepitus) you were provided with a list of home shelters and resources for homelss people youwere also provided with a list for drug/alcohol rehabilitation if you would like to follow up at [facility] [address] call [phone] for an appointment follow up with your clinic that you go to at [facility]" Patients discharge medications: Eliquis 2.5mg POBID Apsirin 81mg POQD Digoxin 0.25mg POQD Furosemide 20mg POQD Lisinopril 5mg POQD Metoprolol succinate 25mg POQD Risperidone 0.5mg POQHS Atorvastatin 40mg POQHS Trazodone 50mg POQHS - Date & Time of H&P Date of H&P: 01/09/17 Time of H&P: 14:30 Discharge Exam - Head Exam Head Exam: NORMAL INSPECTION - Eye Exam Eye Exam: EOMI, Normal appearance - ENT Exam ENT Exam: Mucous Membranes Moist - Respiratory Exam Respiratory Exam: NORMAL BREATHING PATTERN. absent: Decreased Breath Sounds, Rales, Rhonchi - Cardiovascular Exam Cardiovascular Exam: REGULAR RHYTHM, +S1, +S2 - GI/Abdominal Exam GI & Abdominal Exam: Soft. absent: Firm, Guarding, Tenderness - Extremities Exam Extremities exam: full ROM - Neurological Exam Neurological exam: Alert - Psychiatric Exam Psychiatric exam: Normal Affect, Normal Mood - Skin Skin Exam: Dry, Intact Additional comments: hyperkeratosis of bilateral feet Discharge Plan - Discharge Medications Prescriptions: Apixaban [Eliquis] 2.5 mg PO BID 30 Days tab Aspirin [Aspirin Chewable] 81 mg PO DAILY 30 Days chew Atorvastatin [Lipitor] 40 mg PO HS #30 tab Digoxin [Digitek] 0.25 mg PO DAILY #30 tab Furosemide [Lasix] 20 mg PO DAILY 30 Days tab Lisinopril [Zestril] 5 mg PO DAILY 30 Days tab Metoprolol Succinate [Toprol XL] 25 mg PO DAILY 30 Days tab Risperidone [Risperdal] 0.5 mg PO HS #30 tablet traZODone [Desyrel] 50 mg PO HS 30 Days tab - Follow Up Plan Condition: FAIR Disposition: HOME/ ROUTINE Patient education suggested?: Yes Instructions: Myocardial Infarction (DC), Heart Failure (DC), Chest Pain (DC), Heart Healthy Diet (DC) Additional Instructions: You were provided with a list of home shelters and resources for homeless people. You were also provided with a list for drug/alcohol rehabilitation. If you would like to follow up at [facility] [address], call [phone] for an appointment. Follow up with your clinic that you go to at [facility] Please follow up with a new CT chest in 2 weeks to monitor status of pneumomediastinum. return to ED if symptoms of chest pain worsen. Follow up with cardiothoracic surgeon if symptoms worsen (increased chest pain, crepitus) Take medications as directed. Referrals: Jone Chung MD [Staff Provider] - Clinic,Med Surg [Non-Staff] -
--- NOTE | 2017-01-09 09:41 | CP.PCM.PN ---
Subjective - Date & Time of Evaluation Date of Evaluation: 01/09/17 Time of Evaluation: 07:00 - Subjective Subjective: CT Surgery Pt S&E, NAEO. Reports breathing is improved. no other complaints. Objective - Vital Signs/Intake and Output Vital Signs (last 24 hours): Temp Pulse Resp BP Pulse Ox 97.3 F L 68 20 147/98 H 99 01/09/17 07:10 01/09/17 07:10 01/09/17 07:10 01/09/17 07:10 01/09/17 07:10 Intake and Output: 01/09/17 01/09/17 06:59 18:59 Intake Total 700 Balance 700 - Medications Medications: Current Medications Acetaminophen (Tylenol 325mg Tab) 650 mg PO Q8H PRN PRN Reason: Headache Last Admin: 01/08/17 21:05 Dose: 650 mg Apixaban (Eliquis) 2.5 mg PO BID [facility] Last Admin: 01/08/17 17:39 Dose: 2.5 mg Aspirin (Aspirin Chewable) 81 mg PO DAILY [facility] Last Admin: 01/08/17 09:57 Dose: 81 mg Digoxin (Lanoxin) 0.25 mg PO DAILY@1800 [facility] Last Admin: 01/08/17 17:39 Dose: 0.25 mg Famotidine (Pepcid) 20 mg PO DAILY [facility] Last Admin: 01/08/17 09:58 Dose: 20 mg Folic Acid (Folic Acid) 1 mg PO DAILY [facility] Last Admin: 01/08/17 09:57 Dose: 1 mg Furosemide (Lasix) 20 mg PO DAILY [facility] Last Admin: 01/08/17 09:58 Dose: 20 mg Lactic Acid (Lac-Hydrin 12% Lotion (225 G)) 0 gm EXT BID [facility] Last Admin: 01/08/17 17:38 Dose: 1 applic Lisinopril (Zestril) 5 mg PO DAILY [facility] Last Admin: 01/08/17 09:58 Dose: 5 mg Metoprolol Succinate (Toprol Xl) 25 mg PO DAILY [facility] Last Admin: 01/08/17 09:58 Dose: 25 mg Multivitamins (Hexavitamin) 1 tab PO DAILY [facility] Last Admin: 01/08/17 09:57 Dose: 1 tab Risperidone (Risperdal Tab) 0.5 mg PO QPM [facility] Stop: 01/09/17 18:01 Last Admin: 01/08/17 17:39 Dose: 0.5 mg Rosuvastatin Calcium (Crestor) 20 mg PO HS [facility] Last Admin: 01/02/17 21:38 Dose: 20 mg Thiamine HCl (Vitamin B1 Tab) 100 mg PO DAILY [facility] Last Admin: 01/08/17 09:57 Dose: 100 mg Trazodone HCl (Desyrel) 50 mg PO HS [facility] Last Admin: 01/08/17 21:05 Dose: 50 mg - Labs Labs: 01/08/17 08:13 01/08/17 08:13 PT 10.3 SECONDS (9.7-12.2) 01/02/17 00:15 INR 0.9 01/02/17 00:15 APTT 25 SECONDS (21-34) 01/02/17 00:15 - Constitutional Appears: Non-toxic, No Acute Distress - Head Exam Head Exam: ATRAUMATIC, NORMOCEPHALIC - Respiratory Exam Respiratory Exam: NORMAL BREATHING PATTERN. absent: Respiratory Distress Additional comments: No subcutaneous emphysema noted - Neurological Exam Neurological Exam: Alert, Awake - Skin Skin Exam: Dry, Warm Assessment and Plan - Assessment and Plan (Free Text) Assessment: 61M with small pneumomediastinum Plan: Follow up CT scan for resolution of pneumomediastinum If improved from prior, OK for DC from CT Surgery D/W Dr. Ann Rocha PGY4
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
[2017-01-09] MEDS ORDERED: Iodixanol 320 MG/ML 100 ML BOTTLE IV ONE (09:59)
[2017-01-09 10:10] LABS: BASO % 1.2 % (0.0-2.0); EOS # 0.3 K/uL (0.0-0.7); EOS % 10.7 % (0.0-4.0); HEMATOCRIT 40.8 % (35.0-51.0); LYMPH % 37.4 % (20.0-40.0); MEAN CELL VOLUME 89.5 fL (80.0-94.0); MEAN CORPUSCULAR HEMOGLOBIN 28.9 pg (27.0-31.0); MEAN CORPUSCULAR HGB CONC 32.3 g/dL (33.0-37.0); MEAN PLATELET VOLUME 10.7 fL (7.2-11.7); MONO # 0.5 K/uL (0.0-0.8); MONO % 17.9 % (0.0-10.0); NRBC % 0.4 % (0.0-2.0); RED CELL DISTRIBUTION WIDTH 16.4 % (11.5-14.5); WHITE BLOOD COUNT 2.6 K/uL (4.8-10.8)
[2017-01-09 10:19] LABS: ALKALINE PHOSPHATASE 88 U/L (38-126); ALT/SGPT 191 U/L (21-72); AST/SGOT 139 U/L (17-59); BILIRUBIN,TOTAL 0.3 mg/dL (0.2-1.3); BLOOD UREA NITROGEN 34 mg/dL (9-20); CALCIUM 8.7 mg/dl (8.6-10.4); CARBON DIOXIDE 29 mmol/L (22-30); CHLORIDE 100 mmol/L (98-107); GFR AFRICAN-AMERICAN > 60; GLUCOSE,RANDOM 85 mg/dL (75-110); SODIUM 133 mmol/L (132-148); TOTAL PROTEIN 6.1 g/dL (6.3-8.3)
[2017-01-09 10:20] LABS: ALB/GLOB RATIO 0.8 (1.0-2.1)
[2017-01-09] MEDS: Multiple Vitamins Tab PO SCH (11:14)
[2017-01-09] MEDS: Metoprolol Succinate 25 mg XL Tab PO SCH (11:15)
[2017-01-09 11:17] VITALS: BP 147/77
[2017-01-09] MEDS: Ammonium Lactate 12% Lotion (225 g) EXT SCH (11:18)
--- NOTE | 2017-01-09 11:36 | VASCLAB ---
PROCEDURE: Lower Extremity Venous Duplex Exam. HISTORY: Leg swelling PRIORS: None. TECHNIQUE: Bilateral common femoral, femoral, popliteal and posterior tibial, peroneal and great saphenous veins were evaluated. Flow was assessed with color Doppler, compressibility, assessment of phasic flow and augmentation response. Report prepared by TOYIN Holt, RVT FINDINGS: RIGHT: 1. Common Femoral Vein: 1.1. Compressibility - Fully compressible: Thrombus - None : Flow - Phasic: Augmentation -Normal: Reflux - None. 2. Femoral Vein: 2.1. Compressibility - Fully compressible: Thrombus - None : Flow - Phasic: Augmentation -Normal: Reflux - None. 3. Popliteal Vein: 3.1. Compressibility - Fully compressible: Thrombus - None : Flow - Phasic: Augmentation -Normal: Reflux - None. 4. Posterior Tibial Vein: 4.1. Compressibility - Fully compressible: Thrombus - None: Flow - Phasic: Augmentation -Normal: Reflux - None. 5. Peroneal Vein: 5.1. Compressibility - Fully compressible: Thrombus - None: Flow - Phasic: Augmentation -Normal: Reflux - None. 6. Great Saphenous Vein: 6.1. Compressibility - Fully compressible: Thrombus - None: Flow - Phasic: Augmentation - Normal: Reflux - None. LEFT: 1. Common Femoral Vein: 1.1. Compressibility - Fully compressible: Thrombus - None: Flow - Phasic: Augmentation -Normal: Reflux - None. 2. Femoral Vein: 2.1. Compressibility - Fully compressible: Thrombus - None: Flow - Phasic: Augmentation -Normal: Reflux - None. 3. Popliteal Vein: 3.1. Compressibility - Fully compressible: Thrombus - None : Flow - Phasic: Augmentation -Normal: Reflux - None. 4. Posterior Tibial Vein: 4.1. Compressibility - Fully compressible: Thrombus - None: Flow - Phasic: Augmentation -Normal: Reflux - None. 5. Peroneal Vein: 5.1. Compressibility - Fully compressible: Thrombus - None: Flow - Phasic: Augmentation -Normal: Reflux - None. 6. Great Saphenous Vein: 6.1. Compressibility - Fully compressible: Thrombus - None: Flow - Phasic: Augmentation - Normal: Reflux - None. OTHER FINDINGS: Right: None significant. Left: None significant. IMPRESSION: Right: No evidence of deep or superficial vein thrombosis of the right lower extremity. Normal valve function noted of the right side. Left: No evidence of deep or superficial vein thrombosis of the left lower extremity. Normal valve function noted of the left side.
--- NOTE | 2017-01-09 11:56 | CT ---
PROCEDURE: CT Chest with contrast HISTORY: comparison COMPARISON: 01/04/2017 TECHNIQUE: Contiguous axial images were obtained through the chest with intravenous contrast enhancement. Sagittal and coronal reconstructions were performed. IV contrast: 100 mL Visipaque Radiation dose (DLP): 185.82 mGy-cm. This CT exam was performed using one or more of the following dose reduction techniques: Automated exposure control, adjustment of the mA and/or kV according to patient size, and/or use of iterative reconstruction technique. FINDINGS: LUNGS: The lungs are well inflated. There is biapical paraseptal emphysema and scattered centrilobular emphysema in both lungs. There is scattered multifocal linear atelectasis in both lungs. No focal consolidation. MEDIASTINUM: There is redemonstration of small pneumomediastinum with tiny foci of air posterior to kurtis and in the region of the right hilum. There is mild dilatation of the proximal and mid esophagus and diffuse circumferential mural thickening in the distal esophagus. There are no filling defects in the pulmonary arteries to suggest acute pulmonary embolism. There is mild aneurysmal dilatation of the ascending aorta. There is mild cardiomegaly. No pericardial effusion. No pathologic lymphadenopathy. PLEURA: No pleural fluid. No pneumothorax. BONES: No fracture. No destructive lesion. Within normal limits for the patient's age. UPPER ABDOMEN: Grossly unremarkable. OTHER FINDINGS: None. IMPRESSION: 1. Persistent small pneumomediastinum with tiny foci of air posterior to the kurtis and in the region of the right hilum. 2. Also noted is abnormal appearance of the esophagus with mild dilatation of the proximal and mid esophagus and diffuse circumferential mural thickening in the distal esophagus. A dedicated barium swallow examination is recommended for complete evaluation of the esophagus and to exclude leak from the esophagus as the source of small pneumomediastinum.
--- NOTE | 2017-01-09 13:34 | CP.PCM.PN ---
Subjective - Date & Time of Evaluation Date of Evaluation: 01/09/17 Time of Evaluation: 13:19 - Subjective Subjective: Pt s/e. Assymptomatic. Chest pain followed apparently severe coughs. CT chest today basically unchanged from ct on 12-26-16.-pneumomediastinum ( specks of air) localized primarily in the tracheal kurtis area. Px Unremarkable. a/p: Minimum pneumomediastinum-most likely following severe coughs/ d/c home whenever medially ready. Repeat ct in two weeks. Reconsult thoracic surgery if pneumomediastinum increases. Objective - Vital Signs/Intake and Output Vital Signs (last 24 hours): Temp Pulse Resp BP Pulse Ox 97.3 F L 68 20 147/77 99 01/09/17 07:10 01/09/17 07:10 01/09/17 07:10 01/09/17 11:14 01/09/17 07:10 Intake and Output: 01/09/17 01/09/17 06:59 18:59 Intake Total 700 Balance 700 - Medications Medications: Current Medications Acetaminophen (Tylenol 325mg Tab) 650 mg PO Q8H PRN PRN Reason: Headache Last Admin: 01/08/17 21:05 Dose: 650 mg Apixaban (Eliquis) 2.5 mg PO BID [facility] Last Admin: 01/09/17 11:15 Dose: 2.5 mg Aspirin (Aspirin Chewable) 81 mg PO DAILY [facility] Last Admin: 01/09/17 11:14 Dose: 81 mg Digoxin (Lanoxin) 0.25 mg PO DAILY@1800 [facility] Last Admin: 01/08/17 17:39 Dose: 0.25 mg Famotidine (Pepcid) 20 mg PO DAILY [facility] Last Admin: 01/09/17 11:14 Dose: 20 mg Folic Acid (Folic Acid) 1 mg PO DAILY [facility] Last Admin: 01/09/17 11:15 Dose: 1 mg Furosemide (Lasix) 20 mg PO DAILY [facility] Last Admin: 01/09/17 11:14 Dose: 20 mg Lactic Acid (Lac-Hydrin 12% Lotion (225 G)) 0 gm EXT BID [facility] Last Admin: 01/09/17 11:18 Dose: 1 applic Lisinopril (Zestril) 5 mg PO DAILY [facility] Last Admin: 01/09/17 11:15 Dose: 5 mg Metoprolol Succinate (Toprol Xl) 25 mg PO DAILY [facility] Last Admin: 01/09/17 11:15 Dose: Not Given Multivitamins (Hexavitamin) 1 tab PO DAILY [facility] Last Admin: 01/09/17 11:14 Dose: 1 tab Risperidone (Risperdal Tab) 0.5 mg PO QPM [facility] Stop: 01/09/17 18:01 Last Admin: 01/08/17 17:39 Dose: 0.5 mg Rosuvastatin Calcium (Crestor) 20 mg PO HS [facility] Last Admin: 01/02/17 21:38 Dose: 20 mg Thiamine HCl (Vitamin B1 Tab) 100 mg PO DAILY [facility] Last Admin: 01/09/17 11:14 Dose: 100 mg Trazodone HCl (Desyrel) 50 mg PO HS [facility] Last Admin: 01/08/17 21:05 Dose: 50 mg - Labs Labs: 01/09/17 09:58 01/09/17 10:00 PT 10.3 SECONDS (9.7-12.2) 01/02/17 00:15 INR 0.9 01/02/17 00:15 APTT 25 SECONDS (21-34) 01/02/17 00:15
[2017-01-09 18:40] VITALS: PULSE 54
--- NOTE | 2017-01-09 20:36 | PN ---
SUBJECTIVE: The patient denies any palpitation. PHYSICAL EXAMINATION: VITAL SIGNS: Blood pressure 147/77, heart rate 68, temperature 97.3, respirations 20. HEENT: Normocephalic. CHEST: Bilateral rhonchi. HEART: S1 and S2 regular. EXTREMITIES: No edema. LABORATORY DATA: Today's hemoglobin and hematocrit is within normal limits. White count and platelet count are 2.6 and 103, both are below normal. Today's SMA-7 is within normal limit except for BUN of 34 and creatinine of 8. ASSESSMENT: 1. Cardiomyopathy. 2. Paroxysmal atrial fibrillation and atrial flutter. RECOMMENDATIONS: I did review the repeat CT scan which revealed small persistent pneumomediastinum with tiny foci of air posterior to the kurtis. Also noted abnormal appearance of esophagus with mild dilatation of the proximal and mid esophagus and diffuse circumferential mural thickening of the distal esophagus and indicted a barium swallow is recommended for the complete evaluation of the esophagus and to exclude leak from the esophagus as a source of small pneumomediastinum. I recommend to perform in depth a barium swallow study and continue current aspirin, Eliquis, Lanoxin, thiamine as well as Zestril. Atif Hand MD
== END 2017-01-09 17:00 | disposition home or self-care (01) | DRG 121 ==
LOC: C.ER 21:41 → C.9E 01-02 03:28 → C.9I 01-02 08:25 → C.5S 01-07 06:25
PROVIDERS: ADMIT Hospitalist; ATTEND Hospitalist
PROC: 4A023N7 Measurement of Cardiac Sampling and Pressure, Left Heart, Percutaneous Approach (ICD-10-PCS; principal; 2017-01-05)
PROC: B2111ZZ Fluoroscopy of Multiple Coronary Arteries using Low Osmolar Contrast (ICD-10-PCS; 2017-01-05)
PROC: B2151ZZ Fluoroscopy of Left Heart using Low Osmolar Contrast (ICD-10-PCS; 2017-01-05)
DX: I21.4 Non-ST elevation (NSTEMI) myocardial infarction (principal); I50.20 Unspecified systolic (congestive) heart failure; D69.6 Thrombocytopenia, unspecified; I42.9 Cardiomyopathy, unspecified; I11.0 Hypertensive heart disease with heart failure; I48.92 Unspecified atrial flutter; I48.0 Paroxysmal atrial fibrillation; J98.2 Interstitial emphysema; F10.239 Alcohol dependence with withdrawal, unspecified; E78.5 Hyperlipidemia, unspecified; I25.10 Atherosclerotic heart disease of native coronary artery without angina pectoris; F17.210 Nicotine dependence, cigarettes, uncomplicated; F19.10 Other psychoactive substance abuse, uncomplicated